=== PATIENT | male | born 1960 | race Caucasian/White ===

== ENCOUNTER 2021-09-09 10:43 | Inpatient (IN) | payer OTHER, SELFPAY ==
[2021-09-09] VITALS (26 sets, daily range): BP systolic 124–172; BP diastolic 52–100; PULSE 74–113; RESP 12–20; TEMP 36.4; O2SAT 90–99; BMI 36.3
--- NOTE | ~2021-09-09 | CT_ITS ---
EXAMINATION: CT HEAD WITHOUT CONTRAST (STROKE PROTOCOL) CLINICAL INFORMATION: Stroke protocol. Patient symptomatic again. COMPARISON: MRI brain and CTA head and neck from earlier the same day TECHNIQUE: Contiguous axial imaging was performed from the skull base to vertex without intravenous administration of contrast. This CT examination was performed using dose optimization techniques as appropriate, variously including the following: *Automated exposure control *Adjustment of mA and/or kV according to patient size (this includes techniques or standardized protocols for targeted exams where dose is matched to indication/reason for exam; i.e. extremities or head) *Use of iterative reconstruction technique DLP: 967 mGy-cm FINDINGS: Image quality is poor. The patient is not appropriately centered within the scanner. No intracranial hemorrhage. No extra-axial fluid collection. Major-white differentiation is maintained. Ventricular system is similar in appearance to the earlier studies. The previously seen small acute infarcts in the cerebellar hemispheres are not seen with most of the posterior fossa obscured by streak artifact. Globes and orbits are normal. No acute sinusitis. No skull fracture. Again seen is sclerosis of the left frontal skull unchanged from earlier. CT/CT head for stroke IMPRESSION: Suboptimal image quality. The patient is not appropriately centered within the scanner. No convincing change from CT angiogram of the head and neck performed earlier today. This critical result was discussed with Sheron Sharp PA-C by telephone at 09/09/2021 7:50 PM and it was ascertained that the content and urgency of the report was understood at the time of direct communication.
--- NOTE | ~2021-09-09 | CT_ITS ---
EXAMINATION: CT CHEST, ABDOMEN AND PELVIS WITHOUT CONTRAST. CLINICAL INFORMATION: Metastatic CA. COMPARISON: None. TECHNIQUE: 5 mm thin axial and reformatted 3 mm thin sagittal and coronal images of chest, abdomen and pelvis were obtained without contrast. FINDINGS: Chest: LUNGS: The lungs are well-expanded and clear of acute pneumonic process. There is bilateral lower lobe atelectasis and/or scarring. There are no pulmonary nodules, mass or groundglass density. Mediastinum: The thyroid lobes are symmetric and normal. The central trachea and the bronchi widely patent. The heart size and great vessels are normal caliber. There is no pericardial effusion. No abnormal size mediastinal lymph nodes seen. Pleura: There is mild posterior pleural thickening. Axilla: There are no abnormal axillary lymph nodes seen. The chest wall is unremarkable. Abdomen and pelvis: Liver, ducts and gallbladder: The liver is homogeneous in density normal size and contour. No focal lesion or intrahepatic ductal dilatation seen. There are no radiopaque gallstone stones or wall thickening. Spleen: Unremarkable. Pancreas: Unremarkable. Adrenal glands: Both adrenal glands are symmetrical and normal. Kidneys, ureter and bladder: The right kidney slightly lobulated mild thickening of upper pole renal cortex. The left kidney is normal cortical thickness in size. There is a midpole cyst and a nonobstructive 2 mm radiopaque calculi lower pole left kidney. There is no hydronephrosis on either side. The urinary bladder is distended without any wall thickening or radiopaque calculi. Lymphovascular structures: The abdominal aorta is of normal caliber there are small shotty retroperitoneal lymph nodes. Abdominal wall: There is a small umbilical hernia containing fat with minimal fat stranding. GI tract: There is scattered stool and gas seen throughout the colon without any significant distention. The small bowel loops and the appendix are normal caliber. Pelvis: No free air or free fluid seen. The prostate gland is normal size. No abnormal size mediastinal or hilar lymph nodes seen. Osseous structures: There is no lytic or sclerotic process seen. There is moderate ventral spondylosis mid and lower dorsal spine and throughout lumbar spine. No aggressive lytic or sclerotic process seen. CT/CT abdomen pelvis wo con IMPRESSION: No acute process seen in the chest. There is bilateral lower lobe atelectasis and/or scarring. No acute process seen in the abdomen and pelvis. Small size right kidney with thinning of the kidney cortex likely secondary to previous inflammatory process. There is no hydronephrosis. Nonobstructive radiopaque calculi lower pole and a small midpole cyst left kidney. No hydronephrosis. Small umbilical hernia containing fat with mild fat stranding.
--- NOTE | ~2021-09-09 | XR_ITS ---
EXAMINATION: XR CHEST CLINICAL INFORMATION: Dizziness and weakness. Rule out pneumonia. COMPARISON: None TECHNIQUE: Frontal view of the chest was obtained. FINDINGS: Cardiac silhouette is mildly enlarged. The lungs are adequately aerated. There is no lobar consolidation. No pleural effusion or pneumothorax. XR/XR chest 1V IMPRESSION: No acute pulmonary pathology.
--- NOTE | ~2021-09-09 | MR_ITS ---
MRI OF THE BRAIN WITHOUT IV CONTRAST INDICATION: Sudden onset vertigo. Blurry vision and slurred speech. COMPARISON: None available. TECHNIQUE: Multiplanar multisequence MR imaging of the brain was obtained without IV contrast. FINDINGS: Limited MRI of the brain. There are multiple small acute infarcts within the cerebellar hemispheres bilaterally. No mass effect and no hemorrhagic transformation. No additional acute infarcts. There is no hydrocephalus, extra-axial surface collection, or midline shift. No intracranial hemorrhage on the gradient series. Cerebellar tonsillar position is normal. The craniocervical junction is normal. No significant soft tissue findings. There is a 2.2 cm focus of bone marrow replacement within the left frontal calvarium on image 22 of series 5 that can be further assessed with a PET scan. MR/MR head/brain wo con IMPRESSION: - There are multiple small acute infarcts within the cerebellar hemispheres bilaterally. No mass effect and no hemorrhagic transformation. - There is a 2.2 cm focus of bone marrow replacement within the left frontal calvarium on image 22 of series 5 that can be further assessed with a PET scan.
--- NOTE | ~2021-09-09 | FL_ITS ---
EXAMINATION: FLUOROSCOPY-GUIDED LUMBAR PUNCTURE CLINICAL INFORMATION: HIV positive. Evaluate for central nervous system vasculitis. COMPARISON: None TECHNIQUE: Following explaining fluoroscopy-guided lumbar puncture procedure, benefits and risks, a written consent was obtained. Preliminary fluoroscopy was performed and a marker was placed on the skin for puncture site. Patient was placed prone on fluoroscopy table and low back area was cleaned and draped in usual sterile manner. 1% lidocaine was injected at the marked site. A 6 inch 20-gauge needle was then advanced from the skin intrathecally at the L4-L5 disc level. After observing CSF return, patient was quickly placed in left lateral decubitus view and opening CSF pressure was obtained. CSF fluid was then collected in 4 test tubes. Subsequently stylet was reintroduced and needle withdrawn. Complete hemostasis achieved at the puncture site. Sterile Band-Aid applied postprocedure. Patient tolerated procedure extremely well. FINDINGS: Preliminary images obtained of lumbar spine show the vertebral heights, alignment and disc heights are normal in the lumbar spine. The opening CSF pressure was 22 cm of water. Approximately 12.9 mL of clear CSF collected in 4 test tubes. The fluid collected was sent to lab as per referring physician's orders. FLUOROSCOPY TIME: 0.9 minutes. DOSE AREA PRODUCT: 11.007 uGy-m2 (microgray-meter squared) FL/FL guided lumbar puncture LP IMPRESSION: Successful fluoroscopy-guided lumbar puncture performed at the L4-L5 disc level. The CSF pressure is elevated measuring 22 cm of water. CSF is clear.
--- NOTE | ~2021-09-09 | CT_ITS ---
EXAMINATION: CT ANGIOGRAM NECK WITH CONTRAST CT ANGIOGRAM BRAIN WITH CONTRAST CLINICAL INFORMATION: Sudden onset dizziness. Cerebellar stroke on MRI. COMPARISON: Brain MRI performed earlier the same day. TECHNIQUE: Test bolus sequences followed by intravenous administration 70 mL of Omnipaque 350. Helical imaging was performed in the axial plane from the thoracic inlet to the skull vertex. Delayed postcontrast imaging of the head was also performed. The data was processed at the distribution engineering technologist workstation for generation of MIP sequences. Angled MIPs and volume rendered reformatted images were also generated at an offline 3D workstation under concurrent supervision. Stenoses are assessed in accordance with NASCET criteria unless otherwise indicated. This CT examination was performed using dose optimization techniques as appropriate, variously including the following: *Automated exposure control *Adjustment of mA and/or kV according to patient size (this includes techniques or standardized protocols for targeted exams where dose is matched to indication/reason for exam; i.e. extremities or head) *Use of iterative reconstruction technique FINDINGS: BRAIN: Small infarcts within the cerebellar hemispheres bilaterally are better demonstrated on the previous MRI of the brain. No mass effect. [There is no intracranial hemorrhage, hydrocephalus, extra-axial surface collection, midline shift, or other herniation pattern. Major to white matter differentiation is diffusely maintained without evidence of an evolved acute territorial infarct. The basilar cisterns are preserved. No significant soft tissue abnormality. No acute osseous abnormality. The paranasal sinuses and the mastoid air cells are well aerated.] There is a 2.2 cm sclerotic lesion within the anterior left frontal calvarium that can again be further assessed with PET. CERVICAL SOFT TISSUES AND LUNG APICES: No significant soft tissue findings within the neck. Imaged lungs are clear. Multilevel cervical spondylosis. NECK CTA: [There is a classic 3 vessel configuration of the aortic arch. Proximal arch vessels are non-stenotic. Occlusion of the left vertebral artery at its origin. The left vertebral artery remains occluded to the level of the left V1/V2 segment junction with reconstitution of the remaining left vertebral artery by paraspinal muscular branches. Both common carotid arteries are normal in course and caliber.] Retropharyngeal course of the left cervical ICA. BRAIN CTA: [There is normal opacification of major intracranial arteries. No focal flow-limiting stenosis nor discrete proximal large artery occlusion. No aneurysm. Timing of the contrast bolus allows assessment of the major dural venous sinuses, which all opacify normally] CT/CT angio head neck stroke IMPRESSION: - Small infarcts within the cerebellar hemispheres bilaterally are better demonstrated on the previous MRI of the brain. No mass effect. - Occlusion of the left vertebral artery at its origin. The left vertebral artery remains occluded to the level of the left V1/V2 segment junction with reconstitution of the remaining left vertebral artery by paraspinal muscular branches. - No acute arterial occlusions intracranially. - There is a 2.2 cm sclerotic lesion within the anterior left frontal calvarium that can again be further assessed with PET. Covering provider paged with these findings at 2:21 PM on 09/09/2021.
--- NOTE | ~2021-09-09 | CT_ITS ---
EXAMINATION: CT HEAD WITHOUT CONTRAST CLINICAL INFORMATION: Follow-up status post TPA COMPARISON: Head CT 09/09/2021, brain MRI 09/09/2021 TECHNIQUE: Imaging was performed from the skull base to vertex without intravenous administration of contrast. This CT examination was performed using dose optimization techniques as appropriate, variously including the following: *Automated exposure control *Adjustment of mA and/or kV according to patient size (this includes techniques or standardized protocols for targeted exams where dose is matched to indication/reason for exam; i.e. extremities or head) *Use of iterative reconstruction technique Total exam dose length product: 790 mGy-cm FINDINGS: No intra or extra-axial fluid collection, hemorrhage, or mass. No ventriculomegaly. No midline shift or herniation. Basal cisterns are patent. Foci of hypoattenuation in the right and left cerebellar hemisphere compatible with evolving no infarcts. Major-white matter differentiation is otherwise maintained. No significant volume loss. No calvarial fracture or soft tissue abnormality. The mastoid air cells and visualized portions of the paranasal sinuses are well aerated. 2.1 cm sclerotic lesion in the anterior left frontal calvarium is unchanged. CT/CT head/brain wo con IMPRESSION: 1. No intracranial hemorrhage. 2. Hypoattenuation in the right and left cerebellar hemispheres compatible with known evolving cerebellar infarcts.
--- NOTE | 2021-09-09 10:46 | ECG_ITS ---
Test Reason : cp Blood Pressure : / mmHG Vent. Rate : 085 BPM Atrial Rate : 085 BPM P-R Int : 152 ms QRS Dur : 100 ms QT Int : 366 ms P-R-T Axes : 019 -36 029 degrees QTc Int : 435 ms Artifact in tracing Normal sinus rhythm Left axis deviation Borderline ECG No previous ECGs available Referred By: Generic ED Physician Electronically Signed By:BRITNEY MIJARES
[2021-09-09 11:03] LABS: Glucose, Whole Blood 188 mg/dL (60-115)
--- NOTE | 2021-09-09 11:10 | PC.NURSE ---
DR SEGURA CONSULTING WITH DR DAVID AT THIS TIME. STROKE RN NOTIFIED VIA [employer] WELL.
[2021-09-09] MEDS: LORazepam 2 MG/ML VIAL 1 MG IVPUSH (11:15)
[2021-09-09] MEDS: Meclizine HCl 25 MG TABLET PO ×2 (11:16→20:22)
[2021-09-09] MEDS: ondansetron HCL 4 MG/2 ML VIAL IVPUSH ×2 (11:18→20:45)
[2021-09-09] MEDS: 0.9 % Sodium Chloride 1,000 ML 999 ML IV (11:19)
[2021-09-09 11:22] LABS: Basophils Absolute Auto 0.1 X10*3/uL (0.0-0.2); Basophils Percent Auto 0.6 % (0-2); Eosinophils Absolute Auto 0.6 X10*3/uL (0.0-0.4); Hematocrit 39.7 % (42.0-52.0); Hemoglobin 13.7 g/dl (14.0-18.0); Imm Gran Abs Auto 0.04 X10*3/uL (0.00-0.03); Imm Gran Pct Auto 0.3 % (0.0-0.4); Lymphocytes Absolute Auto 5.5 X10*3/uL (1.2-4.9); Lymphocytes Percent Auto 46.7 % (20-40); MANUAL DIFF FLAG SCAN; Mean Corpuscular HGB Conc 34.5 g/dl (31.0-36.0); Mean Corpuscular Hemoglobin 31.6 pg (27.0-33.0); Mean Corpuscular Volume 91.5 fL (80.0-98.0); Mean Platelet Volume 9.8 fL (9.4-12.4); Monocytes Absolute Auto 0.7 X10*3/uL (0.1-1.2); Monocytes Percent Auto 5.7 % (2-11); Neutrophils Absolute Auto 4.9 x10*3/uL (2.0-8.3); Neutrophils Percent Auto 41.7 % (45-73); Platelet Count 243 X10*3/uL (160-400); Red Blood Count 4.34 X10*6/uL (4.60-5.80); Red Cell Distribution Width 13.4 % (11.0-16.0); SCAN SMEAR FLAG 1; White Blood Count 11.8 X10*3/uL (4.8-10.8)
[2021-09-09 11:43] LABS: SLIDE REVIEW VERIFIED
[2021-09-09 11:44] LABS: Prothrombin Time 10.8 SEC (9.9-13.0)
[2021-09-09 11:49] LABS: Troponin-I High Sensitivity < 3.5 ng/L (<3.5-35.0)
[2021-09-09 12:14] LABS: Stroke Lab Use COMPLETE
--- NOTE | 2021-09-09 12:26 | ED.DIZZY ---
HPI - Dizziness General Chief Complaint: Dizziness Stated Complaint: SUDDEN ONSET OF DIZZY,NAUSEA,VOMITING Time Seen by Provider: 09/09/21 11:00 Source: patient Mode of arrival: EMS Limitations: no limitations History of Present Illness HPI Narrative: 60-year-old male who presents emergency department for evaluation sudden onset of dizziness, nausea, vomiting blurred vision. The patient states he is sitting from his computer doing work when he had a sudden onset of his symptoms. He states that he felt like the room was spinning. He had nausea and vomited several times. He also states his vision was blurred. The onset of his symptoms were at 10:15 a.m. the patient called 911 and was brought to the emergency department. At the time my evaluation the patient was diaphoretic, his speech was dysarthric but comprehensible, he answers all questions appropriately, his neurologic exam was nonfocal including fever nose to finger, rapid finger movement and cjcs-gr-ywdq movement. Gait was not tested. Patient states that he was in his usual state of health until the above symptoms started. He denied fever, chills, rhinorrhea, sore throat, cough, chest pain, shortness of breath, dyspnea on exertion, abdominal pain, changes bowel movements. MD elicited complaint: dizziness, vertigo and disequilibrium Onset (ago): minute(s) (Just prior to coming to the emergency department) Timing: sudden onset Severity: severe Description: room spinning History of similar symptoms: No Exacerbating factors: change in body position Relieving factors: nothing Associated symptoms: nausea, vomiting and diaphoresis Associated neuro symptoms: vision changes (Blurred vision) and difficulty speaking (Dysarthric) Stroke scale total: 1 Related Data Allergies Allergy/AdvReac Type Severity Reaction Status Date / Time No Known Allergies Allergy Verified 09/09/21 10:46 Review of Systems Review of Systems: Yes all other systems are reviewed and are negative [facility] Past Medical History [facility] Narrative: Past medical history: Diabetes mellitus, hyperlipidemia. Past surgical history: None. Social history: He denies tobacco, alcohol and drug use. Social History Social History Advance Directives: No Advance Directives Information Provided: Yes Physical Exam Vital Signs: Vital Signs: Last Vital Signs Temp 97.5 F 09/09/21 10:50 Pulse 83 09/09/21 15:17 Resp 19 09/09/21 15:17 BP 145/98 H 09/09/21 15:17 Pulse Ox 98 09/09/21 15:17 O2 Del Method 09/09/21 14:45 BMI result Body Mass Index 36.3 Const: General: cooperative and no acute distress Orientation/consciousness: oriented to person and oriented to place Limitations: no limitations HEENT: Head: Yes normal to inspection, Yes normocephalic and Yes atraumatic Ears: external ears normal General nose exam: Normal external nose present Face and sinus: Yes normal facial exam Mouth: Normal oral and palatal mucosa present Throat: Yes posterior oropharynx normal Eyes: General: appearance normal, both eyes and all related structures Pupils: Equal, round and reactive pupils present Neck: Neck: Yes normal visual inspection, Yes no lymphadenopathy, Yes trachea midline and Yes supple Chest: Chest palpation & inspection: normal inspection of the chest and normal palpation of entire chest wall Resp: Effort & Inspection: normal respiratory effort and able to speak in complete sentences Auscultation: clear to auscultation bilaterally Cardio: Rate: regular rate Rhythm: regular rhythm Heart sounds: S1 normal heart sound present, S2 normal heart sound present and no murmurs GI: Inspection: Yes normal to inspection Palpation (GI): Soft to palpation, nontender and no guarding Auscultation: normal bowel sounds : General: Yes no CVA tenderness Back/Spine/Pelvis: Back: no CVA tenderness Skin: General skin exam: no rashes or lesions noted Neuro: General: oriented to person and oriented to place Cranial nerves: Yes CN's II-XII intact bilaterally and Yes Equal, round and reactive pupils present Cognition (Neuro): normal cognition Motor exam (neuro): 5/5 motor strength present throughout Coordination: forlyz-er-lush test normal, qdwm-ez-gvtw test normal and Normal rapid alternating movements of the distal upper extremity present (Neuro) Extrem: General: Yes normal to inspection Psych: Appearance: grossly normal Speech and movement: Normal speech and movement present Affect: normal affect Attitude: cooperative Thought process: Normal thought process present Thought content: Normal thought content present Course Course Course Narrative: 60-year-old male who presents emergency department for evaluation of sudden onset of vertigo like symptoms associated with nausea, vomiting and blurred vision. On presentation the patient was very diaphoretic, his speech was slow and slightly dysarthric but comprehensible. Patient did not have any nystagmus. His neurologic exam was unremarkable with normal jltzwt-zy-eoif-to-finger, xpxh-mb-sxug and rapid finger movement. Patient's NIH stroke scale was 1 secondary to his dysarthric speech. Given his symptoms especially his blurred vision , lack of nystagmus and slightly dysarthric speech was concerned that he may be having cerebellar stroke. I did discuss the patient with our stroke neurologist, Dr. Florez who recommended a stat MRI. The radiologist interpreted the MRI has revealing multiple small infarcts within the cerebellar hemisphere bilaterally. No mass effect no hemorrhagic transformation. There was an incidental 2.2 cm focus of bone marrow replacement within the left frontal calvarium on image 22 series 5 that can be further assessed with a PET scan Given the patient's presentation MRI findings, Dr. Florez recommended giving tPA. The patient had no contraindications. I did discuss the risk and the benefit of receiving tPA with the patient and the patient's family. The patient did consent and he was given his tPA bolus and started on tPA drip. Dr. Florez recommended getting a CT angiogram head and neck after the tPA infusion is completed. I did discuss the patient's presentation with our covering exhaust emissions automotive technician,Dr. George and the patient will be admitted to the ICU. 15 20: CT angiogram head and neck radiology interpretation as follows:- Occlusion of the left vertebral artery at its origin. The left vertebral artery remains occluded to the level of the left V1/V2 segment junction with reconstitution of the remaining left vertebral artery by paraspinal muscular branches. I did discuss this finding with Dr. Florez. This is not a clot that can be retrieved and is managed with blood thinners therefore the patient can be kept at this facility. I did discuss the patient's presentation and findings with the exhaust emissions automotive technician, Dr. George and thepatient will be admitted to the ICU. MDM - Dizziness Lab Data Result diagrams: 09/09/21 11:10 09/09/21 13:26 Labs: Lab Results 09/09/21 09/09/21 09/09/21 Range/Units 11:00 11:10 11:10 WBC 11.8 H (4.8-10.8) X10*3/uL RBC 4.34 L (4.60-5.80) X10*6/uL Hgb 13.7 L (14.0-18.0) g/dl Hct 39.7 L (42.0-52.0) % MCV 91.5 (80.0-98.0) fL MCH 31.6 (27.0-33.0) pg MCHC 34.5 (31.0-36.0) g/dl RDW 13.4 (11.0-16.0) % Plt Count 243 (160-400) X10*3/uL MPV 9.8 (9.4-12.4) fL Immature Gran % (Auto) 0.3 (0.0-0.4) % Neut % (Auto) 41.7 L (45-73) % Lymph % (Auto) 46.7 H (20-40) % [place] % (Auto) 5.7 (2-11) % Eos % (Auto) 5.0 H (0-4) % Baso % (Auto) 0.6 (0-2) % Lymph # (Auto) 5.5 H (1.2-4.9) X10*3/uL [place] # (Auto) 0.7 (0.1-1.2) X10*3/uL Eos # (Auto) 0.6 H (0.0-0.4) X10*3/uL Baso # (Auto) 0.1 (0.0-0.2) X10*3/uL Abs Immat Gran (auto) 0.04 H (0.00-0.03) X10*3/uL Absolute Neuts (auto) 4.9 (2.0-8.3) x10*3/uL Absolute Nucleated RBC 0.000 (0.0-0.012) X10*3/uL Nucleated RBC % (auto) 0.0 (0.0-0.2) /100WBC Smear Tech's Comments VERIFIED PT 10.8 (9.9-13.0) SEC INR 1.0 (0.9-1.1) Sodium (135-145) mmol/L Potassium (3.3-5.1) mmol/L Chloride (96-108) mmol/L Carbon Dioxide (22-29) mmol/L Anion Gap (12-20) BUN (9-16) mg/dL Creatinine (0.5-1.4) mg/dL Estim Creat Clear Calc Estimated GFR POC Glucose 188 H (60-115) mg/dL Random Glucose (60-115) mg/dL Calcium (8.4-10.2) mg/dL Total Bilirubin (0.0-1.0) mg/dL AST (5-37) U/L ALT (0-40) U/L Alkaline Phosphatase (39-117) U/L Troponin I High Sens (<3.5-35.0) ng/L Total Protein (6.5-8.0) g/dL Albumin (3.5-5.0) g/dL 09/09/21 09/09/21 Range/Units 11:10 13:26 WBC (4.8-10.8) X10*3/uL RBC (4.60-5.80) X10*6/uL Hgb (14.0-18.0) g/dl Hct (42.0-52.0) % MCV (80.0-98.0) fL MCH (27.0-33.0) pg MCHC (31.0-36.0) g/dl RDW (11.0-16.0) % Plt Count (160-400) X10*3/uL MPV (9.4-12.4) fL Immature Gran % (Auto) (0.0-0.4) % Neut % (Auto) (45-73) % Lymph % (Auto) (20-40) % [place] % (Auto) (2-11) % Eos % (Auto) (0-4) % Baso % (Auto) (0-2) % Lymph # (Auto) (1.2-4.9) X10*3/uL [place] # (Auto) (0.1-1.2) X10*3/uL Eos # (Auto) (0.0-0.4) X10*3/uL Baso # (Auto) (0.0-0.2) X10*3/uL Abs Immat Gran (auto) (0.00-0.03) X10*3/uL Absolute Neuts (auto) (2.0-8.3) x10*3/uL Absolute Nucleated RBC (0.0-0.012) X10*3/uL Nucleated RBC % (auto) (0.0-0.2) /100WBC Smear Tech's Comments PT (9.9-13.0) SEC INR (0.9-1.1) Sodium 139 (135-145) mmol/L Potassium 5.1 (3.3-5.1) mmol/L Chloride 110 H (96-108) mmol/L Carbon Dioxide 21 L (22-29) mmol/L Anion Gap 13 (12-20) BUN 23 H (9-16) mg/dL Creatinine 1.71 H (0.5-1.4) mg/dL Estim Creat Clear Calc 59.8 Estimated GFR 41 POC Glucose (60-115) mg/dL Random Glucose 166 H (60-115) mg/dL Calcium 8.8 (8.4-10.2) mg/dL Total Bilirubin 0.5 (0.0-1.0) mg/dL AST 17 (5-37) U/L ALT 21 (0-40) U/L Alkaline Phosphatase 103 (39-117) U/L Troponin I High Sens < 3.5 (<3.5-35.0) ng/L Total Protein 7.2 (6.5-8.0) g/dL Albumin 4.3 (3.5-5.0) g/dL Critical Care Time Critical Care Time Critical Care Time: Yes Total Critical Care Time: 45 Attestation: Critical Care: The patient was critically ill with a high probability of imminent or life threatening deterioration. I spent greater than 30 minutes of discontinuous time evaluating the patient,delivering critical care at the bedside, discussing and evaluating pertinent data with consultants. Critical care time does not include time spent performing separately billable procedures or teaching. Total time spent performing critical care was 45 minutes. 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
--- NOTE | 2021-09-09 13:36 | MHC.STROKE ---
Addendum entered by Stefany Sesay RN 09/10/21 14:54: I MET WITH THE PATIENT AND HIS SON, EARLIER I MET WITH THE PATIENT AND DAUGHTER WELL. I REINFORCED THE STROKE EDUCATION AND PLAN OF CARE TO ALL OF THEM. THE PATIENT WILL BE TRANSFERRED TO [facility] TODAY, THE TECH AND MYSELF AMBULATED IN THE ICU HALLWAY, HE DID WELL BUT HE DOES STILL REQUIRE SUPERVISION WHILE AMBULATING. I WILL SEE WHAT PT AND OT SAYS TOMORROW. Addendum entered by Stefany Sesay RN 09/09/21 20:02: [address] CT HEAD REPORT BY DR. WARE IN THE SYSTEM, NO BLEED POST-TPA -ALTEPLASE. BP 150/80 HR 78. Addendum entered by Stefany Sesay RN 09/09/21 19:44: 1849 NOTIFIED BY ICU NURSE JEFFERY THAT THE PATIENT HAD RECURRING SYMPTOMS OF VERTIGO NAUSEA/VOMITING. I IMMEDIATELY CONTACTED DR DAVID, BP 124/52, HR 113 REPORTED TO NEUROLOGIST, A CT HEAD WAS ORDERED STAT, KEVIN ALEXANDER CONTACTED ME AND THE ORDER WAS AMENDED TO CT HEAD FOR STROKE. THE PATIENT WAS TAKEN TO CT, DR DAVID WILL ALSO LOOK AT THE SCAN, THEN HE WILL CALL ICU TO SPEAK WITH THE PA. Addendum entered by Stefany Sesay RN 09/09/21 17:30: REPORT GIVEN TO ICU NURSE ALICIA. REVIEWED TPA GIVEN TIME AT 1218. FREQUENT [id number] VITALS/NEURO'S DONE, [id number] UNTIL 2030 THEN Q1HR, REVIEWED THIS WITH STAFF. I ALSO FOLLOW-UP WITH THE PATIENT AND HIS SON. THE PATIENT WAS ABLE TO GET OFF THE STRETCHER AND TRANSFER TO THE BED WITHOUT DIFFICULTY, HE WILL BE CHECKED BY PT AND OT IN THE AM. 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 ARRIVED AT 1043. EXAMINED BY DR. SEGURA AND STROKE PROTOCOL ACTIVATED, DISCUSSED WITH DR. DAVID AND MRI WAS RECOMMENDED. PATIENT WAS VERY DIZZY, DIAPHORETIC, DYSARTHRIC AND NAUSEOUS. HE NEEDED TO BE PRE-MEDICATED. HE PASSED SWALLOW SCREEN AT 1115. BROUGHT DOWN TO MRI, VOMITED IN ROUTE, MRI DONE AND IN DWI ACUTE CEREBELLAR STROKES IDENTIFIED, DR. DAVID REVIEWED THE SCAN, HE WANTED THE PATIENT TAKEN OUT OF THE SCANNER AND BROUGHT BACK TO THE ED FOR TPA-ALTEPLASE. EDUCATION PROVIDED TO THE PATIENT AND FAMILY, HE DID SAY A FEW TIMES I HAD A STROKE? VITALS WITHIN RANGE FOR TPA IV BOLUS GIVEN AT 1218 FOLLOW BY 1HR INFUSION. CTA H/N RECOMMENDED AFTER THE TPA HAS INFUSED. DOOR-TO-TPA = 95 MINUTES. DELAY GREATER THAN 60 MINUTES DUE TO ADDITIONAL IMAGING NEEDED TO CONFIRM THE DIAGNOSIS, NIHSS=1, AND NAUSEAU/VOMITING. HE WILL BE ADMITTED TO ICU FOR UP TO 24 HOURS, FREQUENT VITALS AND NEURO'S PER PROTOCOL, ECHO, CTA H/N, PNEUMATIC COMPRESSION BOOTS FOR VTE, NO ASPIRIN OR BLOOD THINNERS FOR 24HOURS POST-TPA THEN ANTIPLATELET THERAPY, STATIN IF LDL > 70 AND PATIENT DOES NOT HAVE ANY CONTRAINDICATION. BP CONTROL, BS CONTROL. AND MONITOR FOR ANY WORSENING OF SYMPTOMS. STROKE EDUCATION PROVIDED TO PATIENT AND FAMILY. I WILL CONTINUE TO FOLLOW.
--- NOTE | 2021-09-09 13:53 | PM.NEUROCN ---
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 Associated with that his vision got blurred and double any started sweating and not feeling well. He was brought to emergency room where he was evaluated for acute stroke. Because of concern about posterior circulation and relatively nonfocal examination, other than significant complain of dizziness and inability to walk, an MRI of brain was performed. MRI of brain revealed acute bilateral cerebellar ischemic infarction type of lesions and he was treated with intravenous tPA. I saw him after tPA administration and he was feeling much better with resolution of symptoms. he denied any drug of abuse, excessive alcohol use or any unusual physical activity. Review of Systems Review of Systems: No recent cold or flu-like illness PMFSH Social History Social History Advance Directives: No Advance Directives Information Provided: Yes Meds Allergies Allergy/AdvReac Type Severity Reaction Status Date / Time No Known Allergies Allergy Verified 09/09/21 10:46 Physical Exam Vital Signs: Vital Signs: Last Vital Signs Temp 97.5 F 09/09/21 10:50 Pulse 79 09/09/21 13:30 Resp 16 09/09/21 13:30 BP 153/96 H 09/09/21 13:30 Pulse Ox 97 09/09/21 13:30 O2 Del Method 09/09/21 13:30 BMI result Body Mass Index 36.3 Neuro: Other: he is alert and awake with normal spontaneity of speech fluency comprehension and affect. Pupils are equal round reactive to light. Extraocular muscles are intact. Visual renee are full to threat. Face is symmetrical. Tongue is midline. There is no pronator drift. Sqawsj-aq-pbiv testing is normal. Deep tendon reflexes are trace to 1+ with flexor plantars. He is able to get up and stand up without difficulty. Speech is normal. Affect is normal. Results Labs CBC & Chem 7: 09/09/21 11:10 09/09/21 11:10 Labs: Short CBC 09/09/21 Range/Units 11:10 WBC 11.8 H (4.8-10.8) X10*3/uL Hgb 13.7 L (14.0-18.0) g/dl Hct 39.7 L (42.0-52.0) % Plt Count 243 (160-400) X10*3/uL MRI of brain revealed small bilateral cerebellar areas of restricted diffusion. Some of that was visible on FLAIR sequence but not all. Otherwise no significant brain pathology was noted. Radiologist also reported a lesion in bone marrow of calvarium. Assessment and Plan (1) Cerebral infarction: Status: Acute 60 years old man with underlying history of obesity and hypertension presented with severe dizziness and unsteadiness of gait with blurred vision. Stat MRI of brain revealed bilateral cerebellar ischemic infarction type of lesions. With this finding and presentation, he was treated with intravenous tPA and has done well. At this time my recommendation is to obtain CTA of brain and neck to rule out vertebral basilar or particularly basilar artery disease. If no such vascular lesion is noted, I would pay attention to possibility of hyperviscosity type of syndrome and then the lesion noted on calvarium might become more important. For now avoid blood thinners and admit him to ICU for post tPA blood pressure management Procedures Date of Service Date of Service: 09/09/21
[2021-09-09] MEDS: iohexoL 350 MG/ML 100 ML INFUS..BTL 70 ML IV (14:01)
[2021-09-09 14:32] LABS: Alanine Aminotransferase 21 U/L (0-40); Albumin Level 4.3 g/dL (3.5-5.0); Alkaline Phosphatase 103 U/L (39-117); Anion Gap 13 (12-20); Aspartate Amino Transferase 17 U/L (5-37); Bilirubin Total 0.5 mg/dL (0.0-1.0); Blood Urea Nitrogen 23 mg/dL (9-16); Calcium 8.8 mg/dL (8.4-10.2); Carbon Dioxide 21 mmol/L (22-29); Chloride 110 mmol/L (96-108); Creatinine Clr Calc Pharmacy 59.8; Estimated Glomerular Filt Rate 41; Glucose Random 166 mg/dL (60-115); Potassium 5.1 mmol/L (3.3-5.1); Sodium 139 mmol/L (135-145); Total Protein 7.2 g/dL (6.5-8.0)
[2021-09-09] MEDS: Acetaminophen 325 MG TABLET 975 MG PO (14:48)
[2021-09-09] MEDS: 0.9 % Sodium Chloride 1,000 ML 100 ML IVCONT ×2 (15:57→23:27)
--- NOTE | 2021-09-09 16:04 | PM.CCHP ---
History of Present Illness Date of Service: 09/09/21 Attending physician on admission: Barbi George Chief Complaint: Acute onset of nausea vomiting diet diaphoresis and dizziness A 60-year-old male on anti retroviral and perfectly stable with a background HIV also a type 2 diabetic on metformin it 2 g otherwise p.r.n. albuterol inhaler and indomethacin p.r.n. for gouty pain admitted with an acute onset of nausea vomiting and diaphoresis and dizziness which seems to than significantly improved since we found that he had the multiple bilateral cerebellar infarcts on a on MRI treated with tPA Review of Systems Review of Systems: Yes all other systems are reviewed and are negative [facility] Past Medical History Medical History Diabetes mellitus, type 2 Gout HIV (human immunodeficiency virus infection) Hypertension Kidney stones Social History Social History Household Members: None Housing: House Do you presently have visiting nurse or other home services: No Patient Tobacco Use Status: Never used Tobacco Use of substances other than those prescribed or required for medical reasons: No Have you been hit, kicked, punched, or otherwise hurt by someone within the past year? If so, by whom?: No Do you feel safe in your current relationship?: No [employer] Healthcare Practices: mandaen Advance Directives: No Advance Directives Information Provided: Yes Do you have thoughts of harming others: None Do you have a plan to hurt others: No Plan Recently lost weight without trying: No Eating poorly because of decreased appetite: No Nutrition Risks: No Nutritional Risk Poor oral hygiene: No Meds Allergies Allergy/AdvReac Type Severity Reaction Status Date / Time No Known Allergies Allergy Verified 09/09/21 10:46 Active Medications: Current Medications Sodium Chloride (Ns) 1,000 mls @ 100 mls/hr IVCONT .Q10H [facility] Last Admin: 09/09/21 15:57 Dose: 100 mls/hr Sodium Chloride (0.9 % Sodium Chloride Flush 3 Ml Syringe) 3 ml IVFLUSH QSHIFT [facility] Home Medications Medication Instructions Recorded Confirmed Last Taken Type albuterol sulfate 90 mcg/actuation 2 inh inhalation Q4H PRN Wheezing 09/09/21 09/09/21 Unknown History aerosol inhaler allopurinol 300 mg tablet 2 tab PO BEDTIME 09/09/21 09/09/21 09/08/21 History atorvastatin 40 mg tablet 1 tab PO BEDTIME 09/09/21 09/09/21 09/08/21 History bictegravir 50 mg-emtricitabine 1 tab PO BEDTIME 09/09/21 09/09/21 09/08/21 History 200 mg-tenofovir alafenam 25 mg tablet (Biktarvy) indomethacin 50 mg capsule 3 - 4 cap PO DAILY PRN GOUT ATTACK 09/09/21 09/09/21 Unknown History metformin 1,000 mg tablet 2,000 mg PO BEDTIME 09/09/21 09/09/21 09/08/21 History sildenafil 50 mg tablet 1 tab PO DAILY PRN SEXUAL 09/09/21 09/09/21 Unknown History INTERCOURSE Physical Exam Vital Signs: Vital Signs: Last Vital Signs Temp 97.5 F 09/09/21 10:50 Pulse 84 09/09/21 15:53 Resp 19 09/09/21 15:53 BP 151/99 H 09/09/21 15:53 Pulse Ox 99 09/09/21 15:53 O2 Del Method 09/09/21 14:45 BMI result Body Mass Index 36.3 Vital signs stable and stable sinus rhythm and bedside echo showing globally normal systolic wall motion of the left ventricle all chamber sizes normal and no primary valve or pericardial disease Bedside tests for cerebellar function intact bilaterally Abdomen soft no organomegaly Chest and chest x-ray both clear no adventitious sounds Results Labs CBC and Chem 7: 09/10/21 05:07 09/10/21 05:07 Labs: Laboratory Results - last 24 hr 09/09/21 09/09/21 09/09/21 11:00 11:10 11:10 MCV 91.5 MCH 31.6 MCHC 34.5 RDW 13.4 Plt Count 243 MPV 9.8 Immature Gran % (Auto) 0.3 Neut % (Auto) 41.7 L Lymph % (Auto) 46.7 H [place] % (Auto) 5.7 Eos % (Auto) 5.0 H Baso % (Auto) 0.6 Lymph # (Auto) 5.5 H [place] # (Auto) 0.7 Eos # (Auto) 0.6 H Baso # (Auto) 0.1 Abs Immat Gran (auto) 0.04 H Absolute Neuts (auto) 4.9 Absolute Nucleated RBC 0.000 Nucleated RBC % (auto) 0.0 Smear Tech's Comments VERIFIED PT 10.8 INR 1.0 Anion Gap Estim Creat Clear Calc Estimated GFR POC Glucose 188 H Random Glucose Calcium Total Bilirubin AST ALT Alkaline Phosphatase Troponin I High Sens Total Protein Albumin 09/09/21 09/09/21 11:10 13:26 MCV MCH MCHC RDW Plt Count MPV Immature Gran % (Auto) Neut % (Auto) Lymph % (Auto) [place] % (Auto) Eos % (Auto) Baso % (Auto) Lymph # (Auto) [place] # (Auto) Eos # (Auto) Baso # (Auto) Abs Immat Gran (auto) Absolute Neuts (auto) Absolute Nucleated RBC Nucleated RBC % (auto) Smear Tech's Comments PT INR Anion Gap 13 Estim Creat Clear Calc 59.8 Estimated GFR 41 POC Glucose Random Glucose 166 H Calcium 8.8 Total Bilirubin 0.5 AST 17 ALT 21 Alkaline Phosphatase 103 Troponin I High Sens < 3.5 Total Protein 7.2 Albumin 4.3 Imaging Radiologist's Impressions: Impressions Brain MRI 09/09/21 12:00 IMPRESSION: - There are multiple small acute infarcts within the cerebellar hemispheres bilaterally. No mass effect and no hemorrhagic transformation. - There is a 2.2 cm focus of bone marrow replacement within the left frontal calvarium on image 22 of series 5 that can be further assessed with a PET scan. Chest X-Ray 09/09/21 13:24 IMPRESSION: No acute pulmonary pathology. Head/Neck CTA 09/09/21 14:02 IMPRESSION: - Small infarcts within the cerebellar hemispheres bilaterally are better demonstrated on the previous MRI of the brain. No mass effect. - Occlusion of the left vertebral artery at its origin. The left vertebral artery remains occluded to the level of the left V1/V2 segment junction with reconstitution of the remaining left vertebral artery by paraspinal muscular branches. - No acute arterial occlusions intracranially. - There is a 2.2 cm sclerotic lesion within the anterior left frontal calvarium that can again be further assessed with PET. Covering provider paged with these findings at 2:21 PM on 09/09/2021. 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
[2021-09-09 17:00] LABS: Glucose, Whole Blood 109 mg/dL (60-115)
[2021-09-09 17:05] LABS: COVID-19 Test Negative (Negative)
--- NOTE | 2021-09-09 18:28 | PHA.MEDREC ---
Pharmacy Consult ? Medication Reconciliation Pharmacy has completed the medication reconciliation.
--- NOTE | 2021-09-09 19:29 | PC.NURSE ---
1849-pt's son came out to say pt was feeling dizziness and nauseated. Went to assess pt. Pt had small amount of emesis. [place] text sent to Stefany, stroke educator and Dr. George. Stefany was notifiying neuro . No other neuro issues noted during assessment. 1854-pt states, dizziness is there regardless of eyes open or closed, and headache which is rating at 2-3. Nausea subsided. Neuro called and was updated. stat head CT w/o contrast. 1899-report given to night RN and updated PA. 1909-pts son came out again and stated, pt had twitching in left hand and foot. Upon assessment, no twitching noted. Pt states, headache is now a 4-5, could not describe anymore. No neuro changes noted. 1914-pt to CT with RN and PA.
[2021-09-09 20:13] LABS: Glucose, Whole Blood 116 mg/dL (60-115)
--- NOTE | 2021-09-09 20:19 | P.PNCC_ITS ---
Critical Care Event Note Summary Date of Service: 09/09/21 Code activated: No Narrative: This case had a high probability of a clinically significant, sudden, or life threatening deterioration of this patient's condition which required my full and direct attention, intervention and personal management. Critical Care Time (minutes): 30 Comment: Prior to my arrival this evening, the patient reported to his nurse that he was feeling dizzy and nauseous again, similar to how he felt when he called 911. The RN texted the neurologist, Dr. Florez and Stefany Sesay, [place], they recommended repeat head CT to verify no hemorrhage. When I came in at 7pm, the patient stated again that he we still felt dizzy and nauseous, we immediately brought him down for a repeat head CT. [facility] called to report no change and no hemorrhage. I asked Dr. Florez if we should repeat the MRI (per the families repeated requests) but he said no because we have no treatment offer (pt has already rec'd tPA) and that the patient will likely remain dizzy for a while due to the damage done in the posterior circulation stroke earlier today. I sat with the patients 2 sons and discusses the situation and how a repeat MRI is not needed. Dr. Florez recommended treating the dizziness with meclizine, we gave the patient 25 mg meclizine at 20:30 which he immediately vomited up. Gave IV Zofran and Benadryl. Pt slept soundly for a few hours and reports feeling better upon waking. Critical Care Time Critical Care Time (minutes): 60
[2021-09-09] MEDS: diphenhydrAMINE HCL 50 MG/ML VIAL 25 MG IVPUSH (20:45)
[2021-09-09 22:50] LABS: Troponin-I High Sensitivity 4.9 ng/L (<3.5-35.0)
[2021-09-09] MEDS: 0.9 % Sodium Chloride Flush 3 ML SYRINGE IVFLUSH (23:23)
[2021-09-10] VITALS (17 sets, daily range): BP systolic 112–168; BP diastolic 56–99; PULSE 74–102; RESP 12–21; TEMP 36.5–37; O2SAT 94–98; BMI 37.3
[2021-09-10 05:36] LABS: MANUAL DIFF FLAG NO
[2021-09-10 05:39] LABS: Basophils Percent Auto 0.6 % (0-2); Eosinophils Absolute Auto 0.2 X10*3/uL (0.0-0.4); Eosinophils Percent Auto 3.5 % (0-4); Hematocrit 36.4 % (42.0-52.0); Hemoglobin 12.3 g/dl (14.0-18.0); Imm Gran Abs Auto 0.02 X10*3/uL (0.00-0.03); Imm Gran Pct Auto 0.3 % (0.0-0.4); Lymphocytes Percent Auto 28.8 % (20-40); Mean Corpuscular HGB Conc 33.8 g/dl (31.0-36.0); Mean Corpuscular Hemoglobin 31.5 pg (27.0-33.0); Mean Corpuscular Volume 93.3 fL (80.0-98.0); Mean Platelet Volume 9.8 fL (9.4-12.4); Monocytes Absolute Auto 0.3 X10*3/uL (0.1-1.2); Neutrophils Absolute Auto 4.2 x10*3/uL (2.0-8.3); Neutrophils Percent Auto 61.8 % (45-73); Platelet Count 206 X10*3/uL (160-400); Red Cell Distribution Width 13.5 % (11.0-16.0); White Blood Count 6.8 X10*3/uL (4.8-10.8)
[2021-09-10 06:04] LABS: Anion Gap 10 (12-20); Blood Urea Nitrogen 17 mg/dL (9-16); Calcium 8.4 mg/dL (8.4-10.2); Carbon Dioxide 24 mmol/L (22-29); Chloride 111 mmol/L (96-108); Creatinine Clr Calc Pharmacy 75.1; Estimated Glomerular Filt Rate 53; Glucose Random 130 mg/dL (60-115); Sodium 140 mmol/L (135-145); Triglycerides 194 mg/dL
[2021-09-10 06:14] LABS: Cholesterol 81 mg/dL; HDL Cholesterol 19 mg/dL; LDL Cholesterol Calculated 24 mg/dl
[2021-09-10 07:36] LABS: Glucose, Whole Blood 123 mg/dL (60-115)
--- NOTE | 2021-09-10 09:41 | P.PNCC_ITS ---
Subjective Subjective Date of Service: 09/10/21 Interval History: 60-year-old male type 2 diabetic on metformin also on anti retroviral for a HIV diagnosis in the last year but feeling perfectly fine who was well up until sudden onset of nausea vomiting diaphoresis and severe dizziness with some clinical improvement following tPA after noting on MRI that he had multiple and bilateral cerebellar strokes and I reviewed the MRI in CT appearance and there was no sense that this was something atypical like lymphoma out or in infection etc. that they look really like infarct so at this point usual treatment 24 hours following tPA administration will receive aspirin and remain on atorvas tatin at etc. but he is doing very well currently without symptom Critical Care Time (minutes): 45 Physical Exam Vital Signs: Vital Signs: Last Vital Signs Temp 97.7 F 09/10/21 08:00 Pulse 74 09/10/21 09:00 Resp 16 09/10/21 09:00 BP 149/89 H 09/10/21 09:00 Pulse Ox 96 09/10/21 09:00 O2 Del Method 09/10/21 09:00 BMI result Body Mass Index 37.3 Vital signs excellent nonfocal neurologically including cerebellar assessment Cardiovascular by bedside echo within normal limits but awaiting formal echo with bubble study to rule out PFO Chest clear without adventitious sounds Abdomen benign no organomegaly Skin intact Objective Data Labs CBC & Chem 7: 09/10/21 05:07 09/10/21 05:07 Labs: Laboratory Results - last 24 hr 09/09/21 09/09/21 09/09/21 11:00 11:10 11:10 WBC 11.8 H RBC 4.34 L Hgb 13.7 L Hct 39.7 L MCV 91.5 MCH 31.6 MCHC 34.5 RDW 13.4 Plt Count 243 MPV 9.8 Immature Gran % (Auto) 0.3 Neut % (Auto) 41.7 L Lymph % (Auto) 46.7 H [place] % (Auto) 5.7 Eos % (Auto) 5.0 H Baso % (Auto) 0.6 Lymph # (Auto) 5.5 H [place] # (Auto) 0.7 Eos # (Auto) 0.6 H Baso # (Auto) 0.1 Abs Immat Gran (auto) 0.04 H Absolute Neuts (auto) 4.9 Absolute Nucleated RBC 0.000 Nucleated RBC % (auto) 0.0 Smear Tech's Comments VERIFIED PT 10.8 INR 1.0 Sodium Potassium Chloride Carbon Dioxide Anion Gap BUN Creatinine Estim Creat Clear Calc Estimated GFR POC Glucose 188 H Random Glucose Calcium Total Bilirubin AST ALT Alkaline Phosphatase Troponin I High Sens Total Protein Albumin Triglycerides Cholesterol LDL Cholesterol, Calc HDL Cholesterol COVID-19 ([facility]) COVID-19 [facility] 09/09/21 09/09/21 09/09/21 11:10 13:26 15:58 WBC RBC Hgb Hct MCV MCH MCHC RDW Plt Count MPV Immature Gran % (Auto) Neut % (Auto) Lymph % (Auto) [place] % (Auto) Eos % (Auto) Baso % (Auto) Lymph # (Auto) [place] # (Auto) Eos # (Auto) Baso # (Auto) Abs Immat Gran (auto) Absolute Neuts (auto) Absolute Nucleated RBC Nucleated RBC % (auto) Smear Tech's Comments PT INR Sodium 139 Potassium 5.1 Chloride 110 H Carbon Dioxide 21 L Anion Gap 13 BUN 23 H Creatinine 1.71 H Estim Creat Clear Calc 59.8 Estimated GFR 41 POC Glucose Random Glucose 166 H Calcium 8.8 Total Bilirubin 0.5 AST 17 ALT 21 Alkaline Phosphatase 103 Troponin I High Sens < 3.5 Total Protein 7.2 Albumin 4.3 Triglycerides Cholesterol LDL Cholesterol, Calc HDL Cholesterol COVID-19 ([facility]) Negative COVID-[employer] See Note 09/09/21 09/09/21 09/09/21 16:56 19:33 22:04 WBC RBC Hgb Hct MCV MCH MCHC RDW Plt Count MPV Immature Gran % (Auto) Neut % (Auto) Lymph % (Auto) [place] % (Auto) Eos % (Auto) Baso % (Auto) Lymph # (Auto) [place] # (Auto) Eos # (Auto) Baso # (Auto) Abs Immat Gran (auto) Absolute Neuts (auto) Absolute Nucleated RBC Nucleated RBC % (auto) Smear Tech's Comments PT INR Sodium Potassium Chloride Carbon Dioxide Anion Gap BUN Creatinine Estim Creat Clear Calc Estimated GFR POC Glucose 109 116 H Random Glucose Calcium Total Bilirubin AST ALT Alkaline Phosphatase Troponin I High Sens 4.9 Total Protein Albumin Triglycerides Cholesterol LDL Cholesterol, Calc HDL Cholesterol COVID-19 ([facility]) COVID-19 [facility] 09/10/21 09/10/21 09/10/21 05:07 05:07 07:32 WBC 6.8 RBC 3.90 L Hgb 12.3 L Hct 36.4 L MCV 93.3 MCH 31.5 MCHC 33.8 RDW 13.5 Plt Count 206 MPV 9.8 Immature Gran % (Auto) 0.3 Neut % (Auto) 61.8 Lymph % (Auto) 28.8 [place] % (Auto) 5.0 Eos % (Auto) 3.5 Baso % (Auto) 0.6 Lymph # (Auto) 2.0 [place] # (Auto) 0.3 Eos # (Auto) 0.2 Baso # (Auto) 0.0 Abs Immat Gran (auto) 0.02 Absolute Neuts (auto) 4.2 Absolute Nucleated RBC 0.000 Nucleated RBC % (auto) 0.0 Smear Tech's Comments PT INR Sodium 140 Potassium 5.0 Chloride 111 H Carbon Dioxide 24 Anion Gap 10 L BUN 17 H Creatinine 1.38 Estim Creat Clear Calc 75.1 Estimated GFR 53 POC Glucose 123 H Random Glucose 130 H Calcium 8.4 Total Bilirubin AST ALT Alkaline Phosphatase Troponin I High Sens Total Protein Albumin Triglycerides 194 Cholesterol 81 LDL Cholesterol, Calc 24 HDL Cholesterol 19 COVID-19 ([facility]) COVID-19 Clin Com Progress Note: A&P Assessment and plan (1) Cerebral infarction: Status: Acute (2) Cerebellar stroke: Status: Acute (3) 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 the note was an atypical diagnosis so no need for CSF sampling Quality Stroke Does the patient have a stroke diagnosis?: Yes Reason for No Anti-thrombotic by Day Two: Drug interaction VTE Prior VTE?: No VTE Risk Level:: Medical - low VTE Device Contraindication: N/A - Device Ordered VTE Drug Contraindication: Treatment Not Indicated
--- NOTE | 2021-09-10 10:08 | P.CNNE_ITS ---
History of Present Illness Data of Consult Service Date: 09/10/21 Primary Care Provider: Nonstaff Physician HPI Reason for consult: Stroke 60 years old man with underlying history of hypertension who was seen in emergency room yesterday with acute symptoms of posterior circulation stroke, with stat MRI revealing bilateral cerebellar infarcts, treated with intravenous tPA. We learned later that he also suffered from HIV disease and was taking anti-retroviral drugs, which he did not volunteer to share yesterday. He said that his HIV was controlled and numbers were good. Last night he had another bout of dizziness and had a CT scan of brain done to rule out any complication of tPA, which was not found. This morning he was feeling fine with no symptoms. [facility] Past Medical History Medical History (Updated 09/10/21 @ 09:45 by Barbi George MD) Diabetes mellitus, type 2 Gout HIV (human immunodeficiency virus infection) HIV (human immunodeficiency virus infection) Hypertension Kidney stones Social History Social History Household Members: None Housing: House Do you presently have visiting nurse or other home services: No Patient Tobacco Use Status: Never used Tobacco Use of substances other than those prescribed or required for medical reasons: No Have you been hit, kicked, punched, or otherwise hurt by someone within the past year? If so, by whom?: No Do you feel safe in your current relationship?: No [facility] Practices: church Advance Directives: No Advance Directives Information Provided: Yes Do you have thoughts of harming others: None Do you have a plan to hurt others: No Plan Recently lost weight without trying: No Eating poorly because of decreased appetite: No Nutrition Risks: No Nutritional Risk Poor oral hygiene: No Meds Allergies Allergy/AdvReac Type Severity Reaction Status Date / Time No Known Allergies Allergy Verified 09/09/21 10:46 Active Medications: Current Medications Albuterol Sulfate (Albuterol Sulfate 90 Mcg 8 Gm Inhaler) 2 puff INHALE Q4H PRN PRN Reason: Wheezing Allopurinol (Allopurinol 300 Mg Tablet) 600 mg PO BEDTIME [facility] Atorvastatin Calcium (Atorvastatin Calcium 40 Mg Tablet) 40 mg PO BEDTIME [facility] Bictegravir/Emtricitabine/Tenofovir (Bictegrav/Emtricit/Tenofov Ala Tablet) 1 tab PO BEDTIME [facility] Dextrose/Sodium Chloride (D5ns) 1,000 mls @ 80 mls/hr IVCONT .[id number] [facility] Meclizine HCl (Meclizine Hcl 25 Mg Tablet) 25 mg PO Q6H PRN PRN Reason: dizzy Last Admin: 09/09/21 20:22 Dose: 25 mg Metformin HCl (Metformin Hcl 1,000 Mg Tablet) 2,000 mg PO BEDTIME [facility] Ondansetron HCl (Ondansetron Hcl 4 Mg/2 Ml Vial) 4 mg IVPUSH Q6H PRN PRN Reason: Nausea Sodium Chloride (0.9 % Sodium Chloride Flush 3 Ml Syringe) [facility] Last Admin: 09/09/21 23:23 Dose: 3 ml Sodium Chloride (0.9 % Sodium Chloride Flush 3 Ml Syringe) 3 [facility] Sodium Chloride (0.9 % Sodium Chloride Flush 3 Ml Syringe) 3 ml IVFLUSH QSALFT [facility] Home Medications Medication Instructions Recorded Confirmed Last Taken Type albuterol sulfate 90 mcg/actuation 2 inh inhalation Q4H PRN Wheezing 09/09/21 09/09/21 Unknown History aerosol inhaler allopurinol 300 mg tablet 2 tab PO BEDTIME 09/09/21 09/09/21 09/08/21 History atorvastatin 40 mg tablet 1 tab PO BEDTIME 09/09/21 09/09/21 09/08/21 History bictegravir 50 mg-emtricitabine 1 tab PO BEDTIME 09/09/21 09/09/21 09/08/21 History 200 mg-tenofovir alafenam 25 mg tablet (Biktarvy) indomethacin 50 mg capsule 3 - 4 cap PO DAILY PRN GOUT ATTACK 09/09/21 09/09/21 Unknown History metformin 1,000 mg tablet 2,000 mg PO BEDTIME 09/09/21 09/09/21 09/08/21 History sildenafil 50 mg tablet 1 tab PO DAILY PRN SEXUAL 09/09/21 09/09/21 Unknown History INTERCOURSE Physical Exam Vital Signs: Vital Signs: Last Vital Signs Temp 97.7 F 09/10/21 08:00 Pulse 74 09/10/21 09:00 Resp 16 09/10/21 09:00 BP 149/89 H 09/10/21 09:00 Pulse Ox 96 09/10/21 09:00 O2 Del Method 09/10/21 09:00 BMI result Body Mass Index 37.3 Neuro: Other: He is alert and awake with normal spontaneity of speech fluency comprehension and affect. Face is symmetrical. Visual renee are full. Kzvjsy-bx-fesw testing is normal. Speech is normal. Results Labs CBC & Chem 7: 09/10/21 05:07 09/10/21 05:07 Labs: Short CBC 09/09/21 09/10/21 Range/Units 11:10 05:07 WBC 11.8 H 6.8 (4.8-10.8) X10*3/uL Hgb 13.7 L 12.3 L (14.0-18.0) g/dl Hct 39.7 L 36.4 L (42.0-52.0) % Plt Count 243 206 (160-400) X10*3/uL BMP 09/09/21 09/10/21 13:26 05:07 Sodium 139 140 Potassium 5.1 5.0 Chloride 110 H 111 H Carbon Dioxide 21 L 24 BUN 23 H 17 H Creatinine 1.71 H 1.38 Calcium 8.8 8.4 Liver Function 09/09/21 Range/Units 13:26 Total Bilirubin 0.5 (0.0-1.0) mg/dL AST 17 (5-37) U/L ALT 21 (0-40) U/L Alkaline Phosphatase 103 (39-117) U/L Albumin 4.3 (3.5-5.0) g/dL Repeat CT scan of brain did not reveal any new abnormality. Assessment and Plan (1) Cerebellar stroke: Status: Acute 60 years old man who apparently suffered from HIV disease taking anti- retroviral drugs and hypertension who presented yesterday with acute vertigo double vision blurred vision nausea and vomiting. His evaluation revealed acute bilateral cerebellar infarcts. He was treated with intravenous tPA. His symptoms were resolved. His imaging revealed left vertebral disease but that would likely not explain the lesion seen on both sides of cerebellum. I recommend appropriate HIV investigations as ordered and also workup for any primary cancer. Procedures Date of Service Date of Service: 09/10/21
[2021-09-10 10:58] LABS: Prostate Specific Antigen Scr 1.15 ng/mL (<0.05-4.0)
[2021-09-10 12:16] LABS: Glucose, Whole Blood 108 mg/dL (60-115)
--- NOTE | 2021-09-10 12:23 | MHC.SL.SWA ---
Speech Pathologist Impression: WFL Risk of Aspiration Due to: Neurological Condition (Stroke) Dysphasia Diet Status: No Change Liquid Consistency and Strategies for Safe Swallow: Liquid Intake Recommendation: Thin Solid Food Consistency: Dietary Recommendations: Regular Additional Modifications to Solid Foods: Unremarkable exam. Recommend continue with unmodified diet REGULAR solids and THIN liquids, pills WHOLE in LIQUID. Further ST intervention no longer warranted as swallow is deemed to be WFL. Sent [place] Message to MD, RN, RD notifying of recommendation. No changes made to diet order. Please re-refer with any further concern. Oral Medication Intake: Whole with Liquid Please contact the pharmacy regarding appropriate crushable or liquid drug formulations that are available whenever modified delivery is recommended. Compensatory Strategies and Precautions to be Taken for Safe Swallow: Sitting Upright (90 deg) Small Bites and Sips Rate of Ingestion Change Supervision While Eating and Drinking for Safe Swallow: None Needed Recommendation for Speech: NA:Typical Evaluation Windmill Mechanic Clinican/Clinical Fellow: No Supervisory Statement: I have reviewed and agree with the student/clinical fellow's documentation: N/A Speech Language Pathologist: Doris Nuñez M.A., CCC-[employer]
[2021-09-10] MEDS: 0.9 % Sodium Chloride Flush 3 ML SYRINGE IVFLUSH (12:40)
--- NOTE | 2021-09-10 13:29 | MHC.CM.PN ---
Addendum entered by Karen Wheeler 09/10/21 15:05: Per PT & OT Recs for Acute Rehab, spoke with patient and son. Referrals out, 1st choice [facility]. Original Note: Meet with patient to complete CM assessment: Independent with care @ home Asked for information re: HCP- Provided to pt PCP- Thuan Sams- task sent to Registration Family to transport @ d/c Son @ bedside CM will follow for any changes in D/C planning
--- NOTE | 2021-09-10 14:16 | PM.EVENT ---
Event Note Date of Service: 09/10/21 Event Note: A 60-year-old male on anti retroviral and perfectly stable with a background HIV also a type 2 diabetic on metformin it 2 g otherwise p.r.n. albuterol inhaler and indomethacin p.r.n. for gouty pain admitted with an acute onset of nausea vomiting and diaphoresis and dizziness which seems to than significantly improved since we found that he had the multiple bilateral cerebellar infarcts on a on MRI treated with tPA DISCUSSED transfer with Dr. George Cerebellar stroke small acute infarcts within cerebellar hemisphere bilaterally s/p TPA in the ICU Stable for tx to medical floor asa, statin Neuro following ? malignancy diagnostic CT's ordered ECHO pending no embolic source, has remained in NSR HIV Stable compliant with medications CD4 pending ID consult Diabetes ss ada diet DVT Prophylaxis with Attending Dr. Duron Full code Family is not aware of HIV status, patient would like to keep it that way Continued hospitalization for monitoring post TPA, stroke
[2021-09-10] MEDS: Aspirin 81 MG TAB.CHEW PO (14:40)
--- NOTE | 2021-09-10 14:44 | P.CNID_ITS ---
History of Present Illness Data of Consult Service Date: 09/10/21 Requesting physician: Barbi George Primary Care Provider: Nonstaff Physician HPI Reason for consult: HIV ,CVA He presents with this am dizziness and nausea and vomiting. He came to ER. He goes to [facility] for HIV care and not sure of CD4 count but has viral load undetectable. He did see Dr Danyelle Payton who retired and now sees a nurse practitioner He takes Biktarvy,has no OIs and was diagnosed 1 1/2 years ago he says. He has four children and and says no one knows of HIV status in family. He said he led an alternative lifestyle for years and didnt take Prep preventive. He denies STIs He says he has diabetes and increased cholesterol Review of Systems Review of Systems: Yes all other systems are reviewed and are negative PMFSH Past Medical History Medical History Diabetes mellitus, type 2 Gout HIV (human immunodeficiency virus infection) HIV (human immunodeficiency virus infection) Hypertension Kidney stones Social History Social History Household Members: None Housing: House Do you presently have visiting nurse or other home services: No Patient Tobacco Use Status: Never used Tobacco Use of substances other than those prescribed or required for medical reasons: No Have you been hit, kicked, punched, or otherwise hurt by someone within the past year? If so, by whom?: No Do you feel safe in your current relationship?: No [facility] Practices: zoroastrian Advance Directives: No Advance Directives Information Provided: Yes Do you have thoughts of harming others: None Do you have a plan to hurt others: No Plan Recently lost weight without trying: No Eating poorly because of decreased appetite: No Nutrition Risks: No Nutritional Risk Poor oral hygiene: No service: No Current occupational status: employed Meds Allergies Allergy/AdvReac Type Severity Reaction Status Date / Time No Known Allergies Allergy Verified 09/09/21 10:46 Active Medications: Current Medications Albuterol Sulfate (Albuterol Sulfate 90 Mcg 8 Gm Inhaler) 2 puff INHALE Q4H PRN PRN Reason: Wheezing Allopurinol (Allopurinol 300 Mg Tablet) 600 mg PO BEDTIME [facility] Aspirin (Aspirin 81 Mg Tab.Chew) 81 mg PO DAILY [facility] Last Admin: 09/10/21 14:40 Dose: 81 mg Atorvastatin Calcium (Atorvastatin Calcium 40 Mg Tablet) 40 mg PO BEDTIME [facility] Bictegravir/Emtricitabine/Tenofovir (Bictegrav/Emtricit/Tenofov Ala Tablet) 1 tab PO BEDTIME [facility] Dextrose/Sodium Chloride (D5ns) 1,000 mls @ 80 mls/hr IVCONT .[id number] [facility] Last Admin: 09/10/21 10:25 Dose: Not Given Meclizine HCl (Meclizine Hcl 25 Mg Tablet) 25 mg PO Q6H PRN PRN Reason: dizzy Last Admin: 09/09/21 20:22 Dose: 25 mg Metformin HCl (Metformin Hcl 1,000 Mg Tablet) 2,000 mg PO BEDTIME [facility] Ondansetron HCl (Ondansetron Hcl 4 Mg/2 Ml Vial) 4 mg IVPUSH Q6H PRN PRN Reason: Nausea Sodium Chloride (0.9 % Sodium Chloride Flush 3 Ml Syringe) 3 [facility] Last Admin: 09/10/21 12:40 Dose: 3 ml Sodium Chloride (0.9 % Sodium Chloride Flush 3 Ml Syringe) 3 ml IVFLUSH QSPAFT [facility] Sodium Chloride (0.9 % Sodium Chloride Flush 3 Ml Syringe) 3 ml IVFLUSH QSPAFT [facility] Home Medications Medication Instructions Recorded Confirmed Last Taken Type albuterol sulfate 90 mcg/actuation 2 inh inhalation Q4H PRN Wheezing 09/09/21 09/09/21 Unknown History aerosol inhaler allopurinol 300 mg tablet 2 tab PO BEDTIME 09/09/21 09/09/21 09/08/21 History atorvastatin 40 mg tablet 1 tab PO BEDTIME 09/09/21 09/09/21 09/08/21 History bictegravir 50 mg-emtricitabine 1 tab PO BEDTIME 09/09/21 09/09/21 09/08/21 History 200 mg-tenofovir alafenam 25 mg tablet (Biktarvy) indomethacin 50 mg capsule 3 - 4 cap PO DAILY PRN GOUT ATTACK 09/09/21 09/09/21 Unknown History metformin 1,000 mg tablet 2,000 mg PO BEDTIME 09/09/21 09/09/21 09/08/21 History sildenafil 50 mg tablet 1 tab PO DAILY PRN SEXUAL 09/09/21 09/09/21 Unknown History INTERCOURSE Physical Exam Vital Signs: Vital Signs: Last Vital Signs Temp 97.8 F 09/10/21 12:00 Pulse 94 09/10/21 14:00 Resp 21 H 09/10/21 14:00 BP 127/70 09/10/21 14:00 Pulse Ox 95 09/10/21 14:00 O2 Del Method 09/10/21 14:00 BMI result Body Mass Index 37.3 Const: General: cooperative and no acute distress Orientatio n/consciousness: oriented to person and oriented to place Limitations: no limitations HEENT: Head: Yes normal to inspection, Yes normocephalic and Yes atraumatic Ears: external ears normal General nose exam: Normal external nose present Face and sinus: Yes normal facial exam Mouth: Normal oral and palatal mucosa present Throat: Yes posterior oropharynx normal Eyes: General: appearance normal, both eyes and all related structures Pupils: Equal, round and reactive pupils present Neck: Neck: Yes normal visual inspection, Yes no lymphadenopathy, Yes trachea midline and Yes supple Chest: Chest palpation & inspection: normal inspection of the chest and normal palpation of entire chest wall Resp: Effort & Inspection: normal respiratory effort and able to speak in complete sentences Auscultation: clear to auscultation bilaterally Cardio: Rate: regular rate Rhythm: regular rhythm Heart sounds: S1 normal heart sound present, S2 normal heart sound present and no murmurs GI: Inspection: Yes normal to inspection Palpation (GI): Soft to palpation, nontender and no guarding Auscultation: normal bowel sounds : General: Yes no CVA tenderness Back/Spine/Pelvis: Back: no CVA tenderness Skin: General skin exam: no rashes or lesions noted Neuro: General: oriented to person and oriented to place Cranial nerves: Yes CN's II-XII intact bilaterally and Yes Equal, round and reactive pupils present Cognition (Neuro): normal cognition Motor exam (neuro): 5/5 motor strength present throughout Coordination: [id number]-lb-hlld test normal, oqwv-pt-oqat test normal and Normal rapid alternating movements of the distal upper extremity present (Neuro) Extrem: General: Yes normal to inspection Psych: Appearance: grossly normal Speech and movement: Normal speech and movement present Affect: normal affect Attitude: cooperative Thought process: Normal thought process present Thought content: Normal thought content present Vital Signs and Narrative: Vital Signs: Last Vital Signs Temp 97.8 F 09/10/21 12:00 Pulse 94 09/10/21 14:00 Resp 21 H 09/10/21 14:00 BP 127/70 09/10/21 14:00 Pulse Ox 95 09/10/21 14:00 O2 Del Method 09/10/21 14:00 BMI result Body Mass Index 37.3 Const: General: cooperative and no acute distress Orientation/consciousness: oriented to person and oriented to place Limitations: no limitations HEENT: Head: Yes normal to inspection, Yes normocephalic and Yes atraumatic Ears: external ears normal General nose exam: Normal external nose present Face and sinus: Yes normal facial exam Mouth: Normal oral and palatal mucosa present Throat: Yes posterior oropharynx normal Eyes: General: appearance normal, both eyes and all related structures Pupils: Equal, round and reactive pupils present Neck: Yes normal visual inspection, Yes no lymphadenopathy, Yes trachea midline and Yes supple Chest: Chest palpation & inspection: normal inspection of the chest and normal palpation of entire chest wall Resp: Effort & Inspection: normal respiratory effort and able to speak in complete sentences Auscultation: clear to auscultation bilaterally Cardio: Rate: regular rate Rhythm: regular rhythm Heart sounds: S1 normal heart sound present, S2 normal heart sound present and no murmurs GI: Inspection: Yes normal to inspection Palpation (GI): Soft to palpation, nontender and no guarding Auscultation: normal bowel sounds : General: Yes no CVA tenderness Back/Spine/Pelvis: Back: no CVA tenderness Skin: General skin exam: no rashes or lesions noted Neuro: Other: weakness ,no facial droop,dizziness General: oriented to person and oriented to place Cranial nerves: Yes CN's II-XII intact bilaterally and Yes Equal, round and reactive pupils present Cognition (Neuro): normal cognition Motor exam (neuro): 5/5 motor strength present throughout Coordination: lfdisn-vp-iazs test normal, lpjx-ao-dbwc test normal and Normal rapid alternating movements of the distal upper extremity present (Neuro) Extrem: General: Yes normal to inspection Psych: Appearance: grossly normal Speech and movement: Normal speech and movement present Affect: normal affect Attitude: cooperative Thought process: Normal thought process present Thought content: Normal thought content present Results Labs CBC & Chem 7: 09/10/21 05:07 09/10/21 05:07 Labs: Short CBC 09/10/21 Range/Units 05:07 WBC 6.8 (4.8-10.8) X10*3/uL Hgb 12.3 L (14.0-18.0) g/dl Hct 36.4 L (42.0-52.0) % Plt Count 206 (160-400) X10*3/uL BMP 09/10/21 05:07 Sodium 140 Potassium 5.0 Chloride 111 H Carbon Dioxide 24 BUN 17 H Creatinine 1.38 Calcium 8.4 Assessment and Plan (1) Cerebral infarction: Status: Acute (2) Cerebellar stroke: Status: Acute (3) HIV (human immunodeficiency virus infection): He reportedly has controlled HIV I doubt CVA is related to any OI as controlled HIV and unremarkable MRI for that HIV has prothrombotic and proinflammatory effects even when controlled. Plan Continue Biktarvy Can check CD4 count and viral load. Follow with Neurology here.
--- NOTE | 2021-09-10 14:50 | PC.NURSE ---
1445-pt ambulated 100 ft with 1 standby assist. pt tolerated well 1450-urine specimen collected
--- NOTE | 2021-09-10 15:22 | PC.NURSE ---
1458-report called to [facility] 1500-pt transferred via wheelchair to room 467. Son accompanied pt. Pt belongings with pt upon transfer.
[2021-09-10 15:38] LABS: Fentanyl, urine Not Detected (Not Detect)
[2021-09-10 15:41] LABS: Amphetamine Screen Urine Not Detected (Not Detect); Barbiturates, Urine Not Detected (Not Detect); Cannabinoid Screen Urine Not Detected (Not Detect); Cocaine Screen Urine Not Detected (Not Detect); Opiate Screen Urine Not Detected (Not Detect); Phencyclidine Screen Urine Not Detected (Not Detect)
[2021-09-10 15:41] LABS: Glucose, Whole Blood 191 mg/dL (60-115)
[2021-09-10] MEDS: Dextrose 5 % and 0.9 % NaCl 1,000 ML 80 ML IVCONT (16:16)
[2021-09-10] MEDS: Meclizine HCl 25 MG TABLET PO (16:16)
[2021-09-10] MEDS: Scopolamine 1.5 MG PATCH.TD.3 EAR-BEHIND (16:53)
--- NOTE | 2021-09-10 17:14 | PC.NURSE ---
report taken from FUN HOUSE ATTENDANT. pt assessed upon arrival. pt having acute onset dizziness with nausea. prn meds administered as ordered and md informed. Scop patch applied behind ear. PT stated he would like to have CT done at a later time due to dizziness, radio engineer informed. Ativan being held until pt goes for CT. safety and fall precautions in place. call moore within reach. fluids maintained.
[2021-09-10 20:05] LABS: Glucose, Whole Blood 126 mg/dL (60-115)
[2021-09-11] VITALS: BP 138/76; PULSE 77; RESP 15; TEMP 37.1; O2SAT 95
[2021-09-11] MEDS: Bictegrav/Emtricit/Tenofov Ala TABLET 1 TAB PO ×2 (00:03→20:50)
[2021-09-11] MEDS: Atorvastatin Calcium 40 MG TABLET PO ×2 (00:03→20:50)
[2021-09-11] MEDS: allopurinoL 300 MG TABLET 600 MG PO ×2 (00:03→20:50)
[2021-09-11] MEDS: metFORMIN HCl 1,000 MG TABLET 2000 MG PO ×2 (00:03→20:50)
[2021-09-11] MEDS: Acetaminophen 325 MG TABLET PO (00:21)
[2021-09-11] MEDS: Acetaminophen 325 MG TABLET 650 MG PO (00:50)
[2021-09-11 04:00] VITALS: BP 113/64; PULSE 75; RESP 15; TEMP 36.9; O2SAT 92
--- NOTE | 2021-09-11 07:00 | CA_ITS ---
Transthoracic Echocardiogram Patient (Last, First, Middle): Gerald Singleton, Gender: Male Date of : 1960 Age: 60 Procedure Date: 09/11/2021 Procedure Type: Transthoracic Echocardiogram Location: [facility] [place] Height: 177.8 cm Weight: 117.94 kg BSA: 2.33 m2 Heart Rate: bpm BP: 113 / 64 mmHg Editor Newspaper: [employer]IN[employer] Referring MD: Barbi George MD Symptoms: Source of embolism Study Quality: Fair/contrast ECG Rhythm: Sinus Conclusions: - The left ventricular systolic function is mildly decreased. The calculated ejection fraction is 45% by biplane method. - No obvious valvular pathology seen on this study. - There is no evidence of interatrial shunt by agitated saline. Findings Procedure Information Contrast agent, definity, is being given per protocol without apparent complications. Left Ventricle Normal left ventricular cavity size. There is mildly increased left ventricular wall thickness. The left ventricular systolic function is mildly decreased. The calculated ejection fraction is 45% by biplane method. There is mild global hypokinesis. Diastolic function is normal for age. Right Ventricle Normal right ventricular cavity size and systolic function. Atria Both atria are normal in size. There is no evidence of interatrial shunt by agitated saline. Bubble study negative during rest and valsalva. Aortic Valve There is a normal trileaflet aortic valve. There is no aortic valve stenosis. There is no aortic valve regurgitation. Mitral Valve The mitral valve appears normal. There is no mitral valve regurgitation. There is no mitral valve stenosis. Pulmonic Valve The pulmonic valve is likely normal. Tricuspid Valve There is no tricuspid valve regurgitation. The pulmonary artery systolic pressure is normal. Great Vessels The asc aorta is normal in size. Venous The inferior vena cava is normal in size and collapses greater than 50% with inspiration. Pericardium/Pleural There is no evidence of pericardial effusion. Prior Study Comparison No prior study available for comparison. Recommendations, Care & Conclusions No obvious valvular pathology seen on this study. Measurements 2D Linear Measurements IVSd: 1.10 0.6-0.9/0.6-1.0 cm LVIDd: 5.15 3.9-5.3/4.2-5.9 cm LVIDd Index: 2.21 2.4-3.2/2.2-3.1 cm/m2 LVIDs: 2.72 2.0-3.6 cm LVPWd: 1.09 0.7-1.1 cm LA Diam: 3.80 2.7-3.8/3.0-4.0 cm LAIDs Index: 1.63 1.5-2.3 cm/m2 LV Mass: 269.21 67-162/88-224 g LV Mass Index: 115.54 43-95/49-115 g/m2 LVOT Diam: 2.20 3.0+(-)1.3 cm 2D Systolic Function EF 4C: 47.10 >55% EF 2C: 45.20 >55% EF BiP: 44.90 >55% Mitral Valve MV Pk E: 0.62 MV PK A: 0.83 MV Decel Time: 259.00 E/A: 0.80 E'Lateral: 7.83 E'Medial: 6.85 E/E' Med: 9.10 E/E' Lat: 8.00 PHT: 76.00 MVA PHT: 2.89 Decel [place]: 2.41 Aortic Valve AoV Pk Rohan: 1.01 AoV Mn Rohan: 0.78 AoV VTI: 0.23 AoV Pk Grad: 4.00 Aov Mn Grad: 3.00 NADER Cont.VTI: 2.18 LVOT LVOT Pk Rohan: 0.69 LVOT Mn Rohan: 0.40 LVOT VTI: 0.13 LVOT Pk Grad: 2.00 LVOT Mn Grad: 1.00 LVOT Diam: 2.20 LVOT Area: 3.80 Diastolic Function MV Pk E: 0.62 MV Pk A: 0.83 E/A: 0.80 E'Medial: 6.85 E/E' Med: 9.10 E' Laterial: 7.83 E/E' Lat: 8.00 Right Ventricle TAPSE (mm): 20.30 TVS' Rohan: 11.20 Tricuspid Valve TR Pk Rohan: 1.59 TR Pk Grad: 10.00 RA Press: 8.00 RVSP: 18.00 Great Vessels Aorta Sinus of Valsalva: 3.47 2.0-3.5 cm Ao Asc: 3.10 2.1-3.4 cm Updated in Other Vendor System with Status of Final Sina Royal MD electronically signed on 09/11/2021 12:50:11 PM with status of Final
[2021-09-11 07:05] LABS: Benzodiazepines Screen Urine Not Detected (Not Detect)
[2021-09-11 07:44] LABS: Glucose, Whole Blood 120 mg/dL (60-115)
[2021-09-11 08:00] VITALS: BP 145/90; PULSE 76; RESP 18; TEMP 36.5; O2SAT 94
[2021-09-11] MEDS: Dextrose 5 % and 0.9 % NaCl 1,000 ML 80 ML IVCONT (08:16)
[2021-09-11] MEDS: Aspirin 81 MG TAB.CHEW PO (08:16)
--- NOTE | 2021-09-11 09:57 | P.PNIM_ITS ---
Subjective Subjective Date of Service: 09/11/21 Review of Systems Follow up Stroke No symptoms sitting up in bed Physical Exam Vital Signs: Vital Signs: Last Vital Signs Temp 97.7 F 09/11/21 08:00 Pulse 76 09/11/21 08:00 Resp 18 09/11/21 08:00 BP 145/90 H 09/11/21 08:00 Pulse Ox 94 09/11/21 08:00 O2 Del Method 09/11/21 08:00 BMI result Body Mass Index 37.3 Appearing in no acute distress lung sounds are clear to auscultation heart regular rate rhythm, clear S1, S2 positive bowel sounds, abdomen is soft, nontender neuro patient is alert x3, no focal deficits Objective Data Active Medications Acetaminophen (Acetaminophen 325 Mg Tablet) 325 mg PO Q8H PRN PRN Reason: Pain, Mild (Pain Scale 1-3) Last Admin: 09/11/21 00:21 Dose: 325 mg Documented By: CONSTANZA Albuterol Sulfate (Albuterol Sulfate 90 Mcg 8 Gm Inhaler) 2 puff INHALE Q4H PRN PRN Reason: Wheezing Allopurinol (Allopurinol 300 Mg Tablet) 600 mg PO BEDTIME [facility] Last Admin: 09/11/21 00:03 Dose: 600 mg Documented By: ELVIA Aspirin (Aspirin 81 Mg Tab.Chew) 81 mg PO DAILY [facility] Last Admin: 09/11/21 08:16 Dose: 81 mg Documented By: NELLY Atorvastatin Calcium (Atorvastatin Calcium 40 Mg Tablet) 40 mg PO BEDTIME [facility] Last Admin: 09/11/21 00:03 Dose: 40 mg Documented By: ELVIA Bictegravir/Emtricitabine/Tenofovir (Bictegrav/Emtricit/Tenofov Ala Tablet) 1 tab PO BEDTIME [facility] Last Admin: 09/11/21 00:03 Dose: 1 tab Documented By: ELVIA Dextrose/Sodium Chloride (D5ns) 1,000 mls @ 80 mls/hr IVCONT .[id number] [facility] Last Admin: 09/11/21 08:16 Dose: 80 mls/hr Documented By: NELLY Metformin HCl (Metformin Hcl 1,000 Mg Tablet) 2,000 mg PO BEDTIME [facility] Last Admin: 09/11/21 00:03 Dose: 2,000 mg Documented By: ELVIA Ondansetron HCl (Ondansetron Hcl 4 Mg/2 Ml Vial) 4 mg IVPUSH Q6H PRN PRN Reason: Nausea Sodium Chloride (0.9 % Sodium Chloride Flush 3 Ml Syringe) 3 ml IVFLUSH QSHIFT [facility] Last Admin: 09/11/21 07:31 Dose: Not Given Documented By: NELLY Non-Admin Reason: assessed Sodium Chloride (0.9 % Sodium Chloride Flush 3 Ml Syringe) 3 ml IVFLUSH QSNHFT [facility] Last Admin: 09/11/21 07:32 Dose: Not Given Documented By: NELLY Non-Admin Reason: assessed Sodium Chloride (0.9 % Sodium Chloride Flush 3 Ml Syringe) 3 ml IVFLUSH QSHIFT [facility] Last Admin: 09/11/21 07:32 Dose: Not Given Documented By: NELLY Non-Admin Reason: assessed Labs CBC & Chem 7: 09/10/21 05:07 09/10/21 05:07 Labs: Laboratory Results - last 24 hr 09/10/21 09/10/21 09/10/21 10:12 12:13 14:49 POC Glucose 108 PSA Screen 1.15 Urine Opiates Screen Not Detected Urine Fentanyl Screen Not Detected Ur Barbiturates Screen Not Detected Ur Phencyclidine Scrn Not Detected Ur Amphetamines Screen Not Detected U Benzodiazepines Scrn Not Detected Urine Cocaine Screen Not Detected U Marijuana (THC) Screen Not Detected 09/10/21 09/10/21 09/11/21 15:37 20:01 07:37 POC Glucose 191 H 126 H 120 H PSA Screen Urine Opiates Screen Urine Fentanyl Screen Ur Barbiturates Screen Ur Phencyclidine Scrn Ur Amphetamines Screen U Benzodiazepines Scrn Urine Cocaine Screen U Marijuana (THC) Screen Assessment and Plan (1) Cerebral infarction: Status: Acute Plan A 60-year-old male on anti retroviral and perfectly stable with a background HIV also a type 2 diabetic on metformin it 2 g otherwise p.r.n. albuterol inhaler and indomethacin p.r.n. for gouty pain admitted with an acute onset of nausea vomiting and diaphoresis and dizziness which seems to than significantly improved since we found that he had the multiple bilateral cerebellar infarcts on a on MRI treated with tPA Cerebellar stroke small acute infarcts within cerebellar hemisphere bilaterally s/p TPA in the ICU asa, statin Neuro following ? malignancy diagnostic CT's ordered ECHO pending no embolic source, has remained in NSR Dry scans of chest, abd neg for malignancy HIV Stable compliant with medications CD4 pending ID consult, HIV does nor appear linked to stroke Diabetes ss ada diet DVT Prophylaxis with heparin Attending Dr. Duron Full code Family is not aware of HIV status, patient would like to keep it that way Continued hospitalization for monitoring post TPA, stroke Quality Stroke Does the patient have a stroke diagnosis?: Yes Reason for No Anti-thrombotic by Day Two: Drug interaction VTE Prior VTE?: No VTE Risk Level:: Medical - low VTE Device Contraindication: N/A - Device Ordered VTE Drug Contraindication: Treatment Not Indicated
[2021-09-11 11:39] LABS: Glucose, Whole Blood 130 mg/dL (60-115)
[2021-09-11 11:58] VITALS: BP 150/94; PULSE 68; RESP 19; TEMP 36.7; O2SAT 96
--- NOTE | 2021-09-11 14:52 | MHC.CM.PN ---
Per Rounds discussion, Patient is not yet medically cleared for dc r/t anticipated LP tomorrow.Acute Rehab continues to be the goal for dc and CM will continue to follow.
[2021-09-11 15:23] VITALS: BP 135/82; PULSE 88; RESP 14; TEMP 36.2; O2SAT 95
--- NOTE | 2021-09-11 15:40 | PC.NURSE ---
IVF maintained. POCs obtained. safety and fall precautions maintained. call moore within reach. updated pt this AM. family at bedside.
[2021-09-11 16:02] LABS: Glucose, Whole Blood 149 mg/dL (60-115)
[2021-09-11 19:46] VITALS: BP 129/84; PULSE 84; RESP 14; TEMP 36.4; O2SAT 96
[2021-09-11 20:05] LABS: Glucose, Whole Blood 102 mg/dL (60-115)
--- NOTE | 2021-09-11 23:19 | PM.EVENT ---
Event Note Date of Service: 09/11/21 Event Note: would check serum cryptococcal antigen and start Acyclovir ?HSV ischemic CVA
[2021-09-12] VITALS (10 sets, daily range): BP systolic 131–173; BP diastolic 65–96; PULSE 65–108; RESP 15–20; TEMP 36.2–37.8; O2SAT 94–98; BMI 35.9
[2021-09-12] MEDS: Dextrose 5 % and 0.9 % NaCl 1,000 ML 80 ML IVCONT (06:12)
[2021-09-12] MEDS: Acetaminophen 325 MG TABLET PO ×2 (06:16→13:52)
[2021-09-12 07:11] LABS: Hematocrit 38.7 % (42.0-52.0); Hemoglobin 12.8 g/dl (14.0-18.0); Mean Corpuscular HGB Conc 33.1 g/dl (31.0-36.0); Mean Corpuscular Hemoglobin 30.8 pg (27.0-33.0); Mean Corpuscular Volume 93.3 fL (80.0-98.0); Mean Platelet Volume 9.6 fL (9.4-12.4); Platelet Count 211 X10*3/uL (160-400); Red Blood Count 4.15 X10*6/uL (4.60-5.80); Red Cell Distribution Width 13.4 % (11.0-16.0); White Blood Count 8.4 X10*3/uL (4.8-10.8)
[2021-09-12 07:36] LABS: Anion Gap 12 (12-20); Blood Urea Nitrogen 13 mg/dL (9-16); Calcium 8.7 mg/dL (8.4-10.2); Carbon Dioxide 25 mmol/L (22-29); Chloride 109 mmol/L (96-108); Creatinine Clr Calc Pharmacy 66.4; Estimated Glomerular Filt Rate 47; Glucose Random 107 mg/dL (60-115); Potassium 5.1 mmol/L (3.3-5.1); Sodium 141 mmol/L (135-145)
[2021-09-12 07:37] LABS: Glucose, Whole Blood 116 mg/dL (60-115)
--- NOTE | 2021-09-12 09:38 | P.PNIM_ITS ---
Subjective Subjective Date of Service: 09/12/21 Review of Systems Follow up Stroke No symptoms sitting up in bed Physical Exam Vital Signs: Vital Signs: Last Vital Signs Temp 97.2 F 09/12/21 07:40 Pulse 65 09/12/21 07:40 Resp 18 09/12/21 07:40 BP 131/69 09/12/21 07:40 Pulse Ox 96 09/12/21 07:40 O2 Del Method 09/12/21 07:40 BMI result Body Mass Index 35.9 Appearing in no acute distress lung sounds are clear to auscultation heart regular rate rhythm, clear S1, S2 positive bowel sounds, abdomen is soft, nontender neuro patient is alert x3, no focal deficits Objective Data Active Medications Acetaminophen (Acetaminophen 325 Mg Tablet) 325 mg PO Q8H PRN PRN Reason: Pain, Mild (Pain Scale 1-3) Last Admin: 09/12/21 06:16 Dose: 325 mg Documented By: GLENROY Albuterol Sulfate (Albuterol Sulfate 90 Mcg 8 Gm Inhaler) 2 puff INHALE Q4H PRN PRN Reason: Wheezing Allopurinol (Allopurinol 300 Mg Tablet) 600 mg PO BEDTIME [facility] Last Admin: 09/11/21 20:50 Dose: 600 mg Documented By: OLIMPIA Aspirin (Aspirin 81 Mg Tab.Chew) 81 mg PO DAILY [facility] Last Admin: 09/11/21 08:16 Dose: 81 mg Documented By: NELLY Atorvastatin Calcium (Atorvastatin Calcium 40 Mg Tablet) 40 mg PO BEDTIME [facility] Last Admin: 09/11/21 20:50 Dose: 40 mg Documented By: OLIMPIA Bictegravir/Emtricitabine/Tenofovir (Bictegrav/Emtricit/Tenofov Ala Tablet) 1 tab PO BEDTIME [facility] Last Admin: 09/11/21 20:50 Dose: 1 tab Documented By: OLIMPIA Acyclovir Sodium 900 mg/ (Sodium Chloride) 268 mls @ 268 mls/hr IV Q8H [facility] Metformin HCl (Metformin Hcl 1,000 Mg Tablet) 2,000 mg PO BEDTIME [facility] [place] Last Admin: 09/11/21 20:50 Dose: 2,000 mg Documented By: OLIMPIA Ondansetron HCl (Ondansetron Hcl 4 Mg/2 Ml Vial) 4 mg IVPUSH Q6H PRN PRN Reason: Nausea Sodium Chloride (0.9 % Sodium Chloride Flush 3 Ml Syringe) 3 ml IVFLUSH QSAZFT [facility] [place] Last Admin: 09/12/21 07:44 Dose: Not Given Documented By: HEYDI Non-Admin Reason: IV Running Sodium Chloride (0.9 % Sodium Chloride Flush 3 Ml Syringe) 3 ml IVFLUSH QSAZFT [facility] Last Admin: 09/12/21 07:44 Dose: Not Given Documented By: HEYDI Non-Admin Reason: IV Running Sodium Chloride (0.9 % Sodium Chloride Flush 3 Ml Syringe) 3 ml IVFLUSH QSAZFT [facility] Last Admin: 09/12/21 07:44 Dose: Not Given Documented By: HEYDI Non-Admin Reason: IV Running Labs CBC & Chem 7: 09/12/21 06:34 09/12/21 06:34 Labs: Laboratory Results - last 24 hr 09/11/21 09/11/21 09/11/21 11:32 15:58 20:02 MCV MCH MCHC RDW Plt Count MPV Absolute Nucleated RBC Nucleated RBC % (auto) Anion Gap Estim Creat Clear Calc Estimated GFR POC Glucose 130 H 149 H 102 Random Glucose Calcium 09/12/21 09/12/21 09/12/21 06:34 06:34 07:32 MCV 93.3 MCH 30.8 MCHC 33.1 RDW 13.4 Plt Count 211 MPV 9.6 Absolute Nucleated RBC 0.000 Nucleated RBC % (auto) 0.0 Anion Gap 12 Estim Creat Clear Calc 66.4 Estimated GFR 47 POC Glucose 116 H Random Glucose 107 Calcium 8.7 Assessment and Plan (1) Cerebral infarction: Status: Acute Plan A 60-year-old male on anti retroviral and perfectly stable with a background HIV also a type 2 diabetic on metformin it 2 g otherwise p.r.n. albuterol inhaler and indomethacin p.r.n. for gouty pain admitted with an acute onset of nausea vomiting and diaphoresis and dizziness which seems to than significantly improved since we found that he had the multiple bilateral cerebellar infarcts on a on MRI treated with tPA Cerebellar stroke small acute infarcts within cerebellar hemisphere bilaterally s/p TPA in the ICU asa, statin Neuro following ? malignancy diagnostic CT's ordered ECHO EF 45%, no embolic source, has remained in NSR Dry scans of chest, abd neg for malignancy LP to assess for [employer] vasculitis as cause for stroke ID rec checking serum cryptococcal antigen and start Acyclovir ?HSV ischemic CVA HIV Stable compliant with medications CD4 pending ID consult, HIV does nor appear linked to stroke Diabetes ss ada diet DVT Prophylaxis with heparin Attending Dr. Duron Full code Family is not aware of HIV status, patient would like to keep it that way Continued hospitalization for monitoring post TPA, stroke Quality Stroke Does the patient have a stroke diagnosis?: Yes Reason for No Anti-thrombotic by Day Two: Drug interaction VTE Prior VTE?: No VTE Risk Level:: Medical - low VTE Device Contraindication: N/A - Device Ordered VTE Drug Contraindication: Treatment Not Indicated
[2021-09-12 11:00] LABS: Glucose, Whole Blood 104 mg/dL (60-115)
[2021-09-12 12:26] LABS: Absolute CD3 Count 1358 cells/uL (840-3060); Absolute CD4 Count 752 cells/uL (490-1740); Absolute CD8 Count 647 cells/uL (180-1170); Absolute Lymphocytes 1916 cells/uL (850-3900); CD4 CD8 Ratio 1.16 (0.86-5.00); Percent CD3 Cells 71 % (57-85); Percent CD4 Cells 39 % (30-61); Percent CD8 Cells 34 % (12-42)
--- NOTE | 2021-09-12 13:14 | MHC.CM.PN ---
With Patient's permission, CM spoke with Patient's Son/Jose @ [phone] to update him on dc planning. PT is recommending Acute Rehab and Patient is clinically accepted at his first choice Facility/[facility] pending bed availability @ dc and [facility] auth. CM will continue to follow.
[2021-09-12 13:20] LABS: CSF Appearance Clear, Colorless; CSF Tube # 3
[2021-09-12 13:30] LABS: Glucose CSF 67 mg/dL; Total Protein CSF 41.6 mg/dL (15-45)
[2021-09-12 13:38] LABS: Appearance CSF CLEAR; CSF Tube # 4; Color CSF COLORLESS; Red Blood Cell CSF 0 MM*3; White Blood Cell CSF 4 MM*3
[2021-09-12 13:39] LABS: Lymphocytes CSF 56 %; Neutrophils CSF 44 %
[2021-09-12 17:22] LABS: Glucose, Whole Blood 81 mg/dL (60-115)
[2021-09-12 17:26] LABS: Glucose, Whole Blood 81 mg/dL (60-115)
[2021-09-12] MEDS: Acetaminophen 325 MG TABLET 650 MG PO (18:07)
[2021-09-12] MEDS: metFORMIN HCl 1,000 MG TABLET 2000 MG PO (20:12)
[2021-09-12] MEDS: Bictegrav/Emtricit/Tenofov Ala TABLET 1 TAB PO (20:12)
[2021-09-12] MEDS: allopurinoL 300 MG TABLET 600 MG PO (20:13)
[2021-09-12] MEDS: 0.9 % Sodium Chloride Flush 3 ML SYRINGE IVFLUSH ×3 (20:13)
[2021-09-12] MEDS: Atorvastatin Calcium 40 MG TABLET PO (20:13)
[2021-09-12 20:22] LABS: Glucose, Whole Blood 130 mg/dL (60-115)
[2021-09-13] VITALS (8 sets, daily range): BP systolic 134–165; BP diastolic 76–97; PULSE 74–94; RESP 15–20; TEMP 36.4–36.9; O2SAT 93–97; BMI 35.6
[2021-09-13] MEDS: Acetaminophen 325 MG TABLET 650 MG PO ×2 (02:49→22:16)
[2021-09-13 07:40] LABS: Glucose, Whole Blood 78 mg/dL (60-115)
[2021-09-13 07:45] LABS: Syphilis Screen Nonreactive (Nonreactive)
[2021-09-13] MEDS: Aspirin 81 MG TAB.CHEW PO (08:22)
[2021-09-13] MEDS: ondansetron HCL 4 MG/2 ML VIAL IVPUSH (08:22)
[2021-09-13] MEDS: 0.9 % Sodium Chloride Flush 3 ML SYRINGE IVFLUSH ×3 (08:23→22:16)
--- NOTE | 2021-09-13 10:53 | PM.DS ---
DS: Providers Provider Date of Service: 09/16/21 Date of admission: 09/09/21 15:24 Primary care physician: Thuan Sams MD Consults: 09/09/21 15:24 Consult to Neurology Routine Consulting Provider: Anjel Florez Reason for consultation: Acute bilateral cerebellar strokes Has provider been notified: Yes 09/10/21 07:49 Consult to Infectious Diseases Routine Consulting Provider: Diana Ye Reason for consultation: HIV on antiretroviral Has provider been notified: Yes DS: Diagnosis Discharge Diagnosis (1) Cerebral infarction: Status: Acute DS: Summary Hospital Course Hospital Course: Chief Complaint: Acute onset of nausea vomiting diet diaphoresis and dizziness A 60-year-old male on anti retroviral and perfectly stable with a background HIV also a type 2 diabetic on metformin it 2 g otherwise p.r.n. albuterol inhaler and indomethacin p.r.n. for gouty pain admitted with an acute onset of nausea vomiting and diaphoresis and dizziness which seems to than significantly improved since we found that he had the multiple bilateral cerebellar infarcts on a on MRI treated with tPA and monitored in ICU a day Hospital course: He had acute bilateral cerebellar CVA with associated dizziness, etiology of stroke is unclear, work up CT heada, head and neck CT, MRI of breain, lumbar puncture to rule out possible HIV related, cryptococcus antigen not detected. He has been treatred with Acyclovir x 5 days per ID recommendation for possible HSV related stroke..Will treated with PO valtrex as well for total of 14 days. Neurology(Dr. Florez) saw him with the following remarks: His evaluation revealed acute bilateral cerebellar infarcts.? He was treated with intravenous tPA.? His symptoms were resolved.? His imaging revealed left vertebral disease but that would likely not explain the lesion seen on both sides of cerebellum. I recommend appropriate HIV investigations as ordered and also workup for any primary cancer. He had CT of chest, abdomen and pelvis to rule out malingnancy and will have Holter on outpatient basis. \ Time Spent with Patient Time attestation: Total time spent providing and/or coordinating discharge services: Discharge coordination time: Greater than 30 minutes Quality: Safe Use of Opioids Does Pt have an Active Cancer Diagnosis on the Problem List?: No Quality: Stroke Does the patient have a stroke diagnosis?: No Physical Exam Vital Signs: Vital Signs: Last Vital Signs Temp 97.7 F 09/13/21 08:00 Pulse 74 09/13/21 09:42 Resp 19 09/13/21 08:00 BP 165/97 H 09/13/21 09:42 Pulse Ox 97 09/13/21 09:42 O2 Del Method 09/13/21 08:00 BMI result Body Mass Index 35.6 DS: Data Data Completed and Pending Pending studies at discharge: Pending at discharge 09/11/21 10:04 Cytology [PTH] Routine Labs on day of discharge: Laboratory Results - last 24 hr 09/10/21 09/11/21 09/12/21 06:58 23:36 10:56 POC Glucose 104 CSF Tube Number CSF Volume CSF Appearance CSF Color CSF WBC CSF RBC CSF Neutrophils CSF Lymphocytes CSF Appearance (b) CSF Glucose CSF Total Protein Total Lymphocytes 1916 % CD3 Cells 71 Absolute CD3 Count 1358 % CD4 Cells 39 Absolute CD4 Count 752 CD4/CD8 Ratio 1.16 % CD8 Cells 34 Absolute CD8 Count 647 T.pallidum Ab (EIA) Nonreactive 09/12/21 09/12/21 09/12/21 16:21 17:14 20:18 POC Glucose 81 81 130 H CSF Tube Number CSF Volume CSF Appearance CSF Color CSF WBC CSF RBC CSF Neutrophils CSF Lymphocytes CSF Appearance (b) CSF Glucose CSF Total Protein Total Lymphocytes % CD3 Cells Absolute CD3 Count % CD4 Cells Absolute CD4 Count CD4/CD8 Ratio % CD8 Cells Absolute CD8 Count T.pallidum Ab (EIA) 09/12/21 09/12/21 09/13/21 Unknown Unknown 07:28 POC Glucose 78 CSF Tube Number 3 4 CSF Volume 3.0 CSF Appearance CLEAR CSF Color COLORLESS CSF WBC 4 CSF RBC 0 CSF Neutrophils 44 CSF Lymphocytes 56 CSF Appearance (b) Clear, Colorless CSF Glucose 67 CSF Total Protein 41.6 Total Lymphocytes % CD3 Cells Absolute CD3 Count % CD4 Cells Absolute CD4 Count CD4/CD8 Ratio % CD8 Cells Absolute CD8 Count T.pallidum Ab (EIA) Preliminary micro results at discharge 09/12/21 Unknown CSF Culture - Preliminary Cerebrospinal Fluid No growth after 1 day Discharge Plan Discharge Anticipated Discharge Date/Time: 09/16/21 08:50 Patient Disposition: Home, Self-Care Discharge Diagnosis: Acute cerebella stroke Referrals: Thuan Sams MD [Primary Care Provider] - 1 Week Discharge Medications: New aspirin 81 mg capsule 81 mg PO DAILY Qty: 30 0RF valacyclovir [Valtrex] 1 gram tablet 1,000 mg PO TID Qty: 27 0RF Continued atorvastatin 40 mg tablet 1 tab PO BEDTIME sildenafil 50 mg tablet 1 tab PO DAILY PRN (Reason: SEXUAL INTERCOURSE) metformin 1,000 mg tablet 2,000 mg PO BEDTIME indomethacin 50 mg capsule 3 - 4 cap PO DAILY PRN (Reason: GOUT ATTACK) allopurinol 300 mg tablet 2 tab PO BEDTIME albuterol sulfate 90 mcg/actuation HFA aerosol inhaler 2 inh inhalation Q4H PRN (Reason: Wheezing) Biktarvy 50-200-25 mg tablet 1 tab PO BEDTIME Discharge Orders: Discharge Order (Routine); Ordered 09/16/21 Ordered By: Denny Barry Diet: Advance to usual diet Activity on Discharge: As tolerated Stand Alone Forms: Patient Portal Discharge page Care Plan Goals: Full recovery from stroke Health Concerns: Full recovery from stroke Plan of Treatment: Acute inpatient rehab Ask your Doctor to arrange for holter monitor through cardiology department at [place] Assessment: as above
--- NOTE | 2021-09-13 10:57 | HO.PM.IMPN ---
Subjective Subjective Date of Service: 09/13/21 Review of Systems F/u on cerebella stroke interval history: c/o dizziness Physical Exam Vital Signs: Vital Signs: Last Vital Signs Temp 97.7 F 09/13/21 08:00 Pulse 74 09/13/21 09:42 Resp 19 09/13/21 08:00 BP 165/97 H 09/13/21 09:42 Pulse Ox 97 09/13/21 09:42 O2 Del Method 09/13/21 08:00 BMI result Body Mass Index 35.6 Const: Other: General: AO X 3, no acute distress Resp: CTA bilateral CVS: S1,S2,RRR GI: +BS, NT, no distention Skin: No rash Neuro: motor grossly intact Psych: appropriate affect Objective Data Active Medications Acetaminophen (Acetaminophen 325 Mg Tablet) 650 mg PO Q8H PRN PRN Reason: Pain, Mild (Pain Scale 1-3) Last Admin: 09/13/21 02:49 Dose: 650 mg Documented By: WADE Albuterol Sulfate (Albuterol Sulfate 90 Mcg 8 Gm Inhaler) 2 puff INHALE Q4H PRN PRN Reason: Wheezing Allopurinol (Allopurinol 300 Mg Tablet) 600 mg PO BEDTIME [facility] Last Admin: 09/12/21 20:13 Dose: 600 mg Documented By: WADE Aspirin (Aspirin 81 Mg Tab.Chew) 81 mg PO DAILY [facility] Last Admin: 09/13/21 08:22 Dose: 81 mg Documented By: ELIAZAR Atorvastatin Calcium (Atorvastatin Calcium 40 Mg Tablet) 40 mg PO BEDTIME [facility] Last Admin: 09/12/21 20:13 Dose: 40 mg Documented By: WADE Bictegravir/Emtricitabine/Tenofovir (Bictegrav/Emtricit/Tenofov Ala Tablet) 1 tab PO BEDTIME [facility] Last Admin: 09/12/21 20:12 Dose: 1 tab Documented By: WADE Acyclovir Sodium 900 mg/ (Sodium Chloride) 268 mls @ 268 mls/hr IV Q8H [facility] Last Infusion: 09/13/21 03:18 Dose: 0 mls/hr Documented By: WADE Metformin HCl (Metformin Hcl 1,000 Mg Tablet) 2,000 mg PO BEDTIME [facility] Last Admin: 09/12/21 20:12 Dose: 2,000 mg Documented By: WADE Ondansetron HCl (Ondansetron Hcl 4 Mg/2 Ml Vial) 4 mg IVPUSH Q6H PRN PRN Reason: Nausea Last Admin: 09/13/21 08:22 Dose: 4 mg Documented By: ELIAZAR Sodium Chloride (0.9 % Sodium Chloride Flush 3 Ml Syringe) 3 ml IVFLUSH [facility] Last Admin: 09/13/21 08:23 Dose: 3 ml Documented By: ELIAZAR Sodium Chloride (0.9 % Sodium Chloride Flush 3 Ml Syringe) 3 ml IVFLUSH [facility] Last Admin: 09/13/21 08:31 Dose: Not Given Documented By: ELIAZAR Non-Admin Reason: Duplicate Order Sodium Chloride (0.9 % Sodium Chloride Flush 3 Ml Syringe) 3 ml IVFLUSH [facility] Last Admin: 09/13/21 08:31 Dose: Not Given Documented By: ELIAZAR Non-Admin Reason: Duplicate Order Labs CBC & Chem 7: 09/12/21 06:34 09/12/21 06:34 Labs: Laboratory Results - last 24 hr 09/10/21 09/11/21 09/12/21 06:58 23:36 10:56 POC Glucose 104 CSF Tube Number CSF Volume CSF Appearance CSF Color CSF WBC CSF RBC CSF Neutrophils CSF Lymphocytes CSF Appearance (b) CSF Glucose CSF Total Protein Total Lymphocytes 1916 % CD3 Cells 71 Absolute CD3 Count 1358 % CD4 Cells 39 Absolute CD4 Count 752 CD4/CD8 Ratio 1.16 % CD8 Cells 34 Absolute CD8 Count 647 T.pallidum Ab (EIA) Nonreactive 09/12/21 09/12/21 09/12/21 16:21 17:14 20:18 POC Glucose 81 81 130 H CSF Tube Number CSF Volume CSF Appearance CSF Color CSF WBC CSF RBC CSF Neutrophils CSF Lymphocytes CSF Appearance (b) CSF Glucose CSF Total Protein Total Lymphocytes % CD3 Cells Absolute CD3 Count % CD4 Cells Absolute CD4 Count CD4/CD8 Ratio % CD8 Cells Absolute CD8 Count T.pallidum Ab (EIA) 09/12/21 09/12/21 09/13/21 Unknown Unknown 07:28 POC Glucose 78 CSF Tube Number 3 4 CSF Volume 3.0 CSF Appearance CLEAR CSF Color COLORLESS CSF WBC 4 CSF RBC 0 CSF Neutrophils 44 CSF Lymphocytes 56 CSF Appearance (b) Clear, Colorless CSF Glucose 67 CSF Total Protein 41.6 Total Lymphocytes % CD3 Cells Absolute CD3 Count % CD4 Cells Absolute CD4 Count CD4/CD8 Ratio % CD8 Cells Absolute CD8 Count T.pallidum Ab (EIA) Microbiology Microbiology Results: Microbiology 09/12/21 Unknown Gram Stain - Final Cerebrospinal Fluid CSF Examination - Final Fluid Description - Final CSF Culture - Preliminary No growth after 1 day Assessment and Plan (1) Cerebral infarction: Status: Acute Plan A 60-year-old male on anti retroviral and perfectly stable with a background HIV also a type 2 diabetic on metformin it 2 g otherwise p.r.n. albuterol inhaler and indomethacin p.r.n. for gouty pain admitted with an acute onset of nausea vomiting and diaphoresis and dizziness which seems to than significantly improved since we found that he had the multiple bilateral cerebellar infarcts on a on MRI treated with tPA Cerebellar stroke small acute infarcts within cerebellar hemisphere bilaterally s/p TPA in the ICU asa, statin Neuro following ECHO EF 45%, no embolic source, has remained in NSR CT chest,Abdomen, no evidence of malignancy LP finding unremarkable for vasculitis of infection ID rec checking serum cryptococcal antigen and start Acyclovir ?HSV ischemic CVA HIV Stable compliant with medications CD4 > 700 ID consult, HIV does nor appear linked to stroke Diabetes ss ada diet DVT Prophylaxis with heparin Attending Dr. Duron Full code Family is not aware of HIV status, patient would like to keep it that way Continued hospitalization for monitoring post TPA, stroke, awaiting acute inpatient w/u Quality Stroke Does the patient have a stroke diagnosis?: No Reason for No Anti-thrombotic by Day Two: Drug interaction VTE Prior VTE?: No VTE Risk Level:: Medical - low VTE Device Contraindication: N/A - Device Ordered VTE Drug Contraindication: Treatment Not Indicated
[2021-09-13 12:33] LABS: Glucose, Whole Blood 84 mg/dL (60-115)
--- NOTE | 2021-09-13 14:10 | PM.IDPN ---
Subjective Subjective Date of Service: 09/13/21 Critical Care Time (minutes): 15 Comment: He feels dizzy Otherwise he feels about the same He has no visual disturbance Objective Data Labs CBC & Chem 7: 09/12/21 06:34 09/12/21 06:34 Labs: Laboratory Results - last 24 hr 09/10/21 09/11/21 09/12/21 06:58 23:36 16:21 POC Glucose 81 Lymphocyte Subset Cmmnt TNP T.pallidum Ab (EIA) Nonreactive 09/12/21 09/12/21 09/13/21 17:14 20:18 07:28 POC Glucose 81 130 H 78 Lymphocyte Subset Cmmnt T.pallidum Ab (EIA) 09/13/21 12:27 POC Glucose 84 Lymphocyte Subset Cmmnt T.pallidum Ab (EIA) Microbiology Microbiology Results: Microbiology 09/12/21 Unknown Cerebrospinal Fluid Gram Stain - Final 09/12/21 Unknown Cerebrospinal Fluid CSF Examination - Final 09/12/21 Unknown Cerebrospinal Fluid Fluid Description - Final 09/12/21 Unknown Cerebrospinal Fluid CSF Culture - Preliminary No growth after 1 day Physical Exam Vital Signs: Vital Signs: Last Vital Signs Temp 97.6 F 09/13/21 12:00 Pulse 78 09/13/21 12:00 Resp 20 09/13/21 12:00 BP 139/92 H 09/13/21 12:00 Pulse Ox 94 09/13/21 12:00 O2 Del Method 09/13/21 12:00 BMI result Body Mass Index 35.6 Const: General: cooperative Orientation/consciousness: patient oriented x3 HEENT: Head: Yes normal to inspection Mouth: Normal oral and palatal mucosa present Resp: Effort & Inspection: normal respiratory effort Cardio: Rate: regular rate Rhythm: regular rhythm GI: Palpation (GI): Soft to palpation and nontender Neuro: General: patient oriented x3 and CN's II-XI intact bilaterally Assessment and Plan Assessment and plan (1) Cerebral infarction: Status: Acute (2) Cerebellar stroke: Problem details: possible herpetic involvement Status: Acute (3) HIV (human immunodeficiency virus infection): Status: Acute Plan Continue Acyclovi IV probable 5 days then po Valtrex 1 g tid for total 14 days Await crypotococcal antigen in blood. Time Spent With Patient Time: Total time spent is greater than 50% in coordination of care (as documented) at patient's floor/unit and/or counseling patient:
[2021-09-13 15:52] LABS: HIV RNA PCR Qn Copies NOT DETECTED copies/mL (NOT DETECTED); HIV RNA PCR Qn Log Copies NOT DETECTED (NOT DETECTED)
[2021-09-13 16:36] LABS: Glucose, Whole Blood 139 mg/dL (60-115)
[2021-09-13 21:20] LABS: Glucose, Whole Blood 121 mg/dL (60-115)
[2021-09-13] MEDS: metFORMIN HCl 1,000 MG TABLET 2000 MG PO (22:15)
[2021-09-13] MEDS: allopurinoL 300 MG TABLET 600 MG PO (22:16)
[2021-09-13] MEDS: Atorvastatin Calcium 40 MG TABLET PO (22:16)
[2021-09-13] MEDS: Bictegrav/Emtricit/Tenofov Ala TABLET 1 TAB PO (22:16)
[2021-09-14 03:39] VITALS: BP 130/82; PULSE 87; RESP 19; O2SAT 95
[2021-09-14 06:00] VITALS: BMI 35.2
[2021-09-14 07:40] LABS: Glucose, Whole Blood 78 mg/dL (60-115)
[2021-09-14 08:00] VITALS: BP 160/87; PULSE 68; RESP 20; TEMP 36.7; O2SAT 96
--- NOTE | 2021-09-14 08:53 | HO.PM.IMPN ---
Subjective Subjective Date of Service: 09/14/21 Interval History: F/u on cerebella stroke interval history: No dizziness today Review of Systems no dizziness, no new stroke symptoms Physical Exam Vital Signs: Vital Signs: Last Vital Signs Temp 98.0 F 09/14/21 08:00 Pulse 68 09/14/21 08:00 Resp 20 09/14/21 08:00 BP 160/87 H 09/14/21 08:00 Pulse Ox 96 09/14/21 08:00 O2 Del Method 09/14/21 08:00 BMI result Body Mass Index 35.2 Const: Other: General: AO X 3, no acute distress Resp: CTA bilateral CVS: S1,S2,RRR GI: +BS, NT, no distention Skin: No rash Neuro: motor grossly intact, gait is normal Psych: appropriate affect Objective Data Active Medications Acetaminophen (Acetaminophen 325 Mg Tablet) 650 mg PO Q8H PRN PRN Reason: Pain, Mild (Pain Scale 1-3) Last Admin: 09/13/21 22:16 Dose: 650 mg Documented By: ELVIA Albuterol Sulfate (Albuterol Sulfate 90 Mcg 8 Gm Inhaler) 2 puff INHALE Q4H PRN PRN Reason: Wheezing Allopurinol (Allopurinol 300 Mg Tablet) 600 mg PO BEDTIME [facility] Last Admin: 09/13/21 22:16 Dose: 600 mg Documented By: ELVIA Aspirin (Aspirin 81 Mg Tab.Chew) 81 mg PO DAILY [facility] Last Admin: 09/13/21 08:22 Dose: 81 mg Documented By: ELIAZAR Atorvastatin Calcium (Atorvastatin Calcium 40 Mg Tablet) 40 mg PO BEDTIME [facility] Last Admin: 09/13/21 22:16 Dose: 40 mg Documented By: ELVIA Bictegravir/Emtricitabine/Tenofovir (Bictegrav/Emtricit/Tenofov Ala Tablet) 1 tab PO BEDTIME [facility] Last Admin: 09/13/21 22:16 Dose: 1 tab Documented By: ELVIA Acyclovir Sodium 900 mg/ (Sodium Chloride) 268 mls @ 268 mls/hr IV Q8H [facility] Last Infusion: 09/14/21 04:17 Dose: 0 mls/hr Documented By: KATHRYN Metformin HCl (Metformin Hcl 1,000 Mg Tablet) 2,000 mg PO BEDTIME [facility] Last Admin: 09/13/21 22:15 Dose: 2,000 mg Documented By: ELVIA Ondansetron HCl (Ondansetron Hcl 4 Mg/2 Ml Vial) 4 mg IVPUSH Q6H PRN PRN Reason: Nausea Last Admin: 09/13/21 08:22 Dose: 4 mg Documented By: ELIAZAR Sodium Chloride (0.9 % Sodium Chloride Flush 3 Ml Syringe) 3 ml IVFLUSH [facility] Last Admin: 09/13/21 22:16 Dose: 3 ml Documented By: ELVIA Sodium Chloride (0.9 % Sodium Chloride Flush 3 Ml Syringe) 3 ml IVFLUSH [facility] Last Admin: 09/14/21 00:14 Dose: Not Given Documented By: ELVIA Non-Admin Reason: Duplicate Order Sodium Chloride (0.9 % Sodium Chloride Flush 3 Ml Syringe) 3 ml IVFLUSH [facility] Last Admin: 09/14/21 00:14 Dose: Not Given Documented By: ELVIA Non-Admin Reason: Duplicate Order Labs CBC & Chem 7: 09/12/21 06:34 09/12/21 06:34 Labs: Laboratory Results - last 24 hr 09/10/21 09/10/21 09/11/21 06:58 06:58 23:36 POC Glucose Lymphocyte Subset Cmmnt TNP HIV-1 RNA copies/mL NOT DETECTED HIV-1 RNA logcopies/mL NOT DETECTED Cryptococcal Ag SEE NOTE 09/13/21 09/13/21 09/13/21 12:27 15:34 21:15 POC Glucose 84 139 H 121 H Lymphocyte Subset Cmmnt HIV-1 RNA copies/mL HIV-1 RNA logcopies/mL Cryptococcal Ag 09/14/21 07:25 POC Glucose 78 Lymphocyte Subset Cmmnt HIV-1 RNA copies/mL HIV-1 RNA logcopies/mL Cryptococcal Ag Microbiology Microbiology Results: Microbiology 09/12/21 Unknown Gram Stain - Final Cerebrospinal Fluid CSF Examination - Final Fluid Description - Final CSF Culture - Preliminary No growth after 2 days Assessment and Plan (1) Cerebral infarction: Status: Acute Plan A 60-year-old male on anti retroviral and perfectly stable with a background HIV also a type 2 diabetic on metformin it 2 g otherwise p.r.n. albuterol inhaler and indomethacin p.r.n. for gouty pain admitted with an acute onset of nausea vomiting and diaphoresis and dizziness which seems to than significantly improved since we found that he had the multiple bilateral cerebellar infarcts on a on MRI treated with tPA Cerebellar stroke small acute infarcts within cerebellar hemisphere bilaterally s/p TPA in the ICU asa, statin Neuro following ECHO EF 45%, no embolic source, has remained in NSR CT chest,Abdomen, no evidence of malignancy LP finding unremarkable for vasculitis of infection ID rec checking serum cryptococcal antigen and Acyclovir IV x 5 days then PO, D3/5 ?HSV ischemic CVA HIV Stable compliant with medications CD4 > 700 ID consult, HIV does nor appear linked to stroke Diabetes ss ada diet DVT Prophylaxis with heparin Attending Dr. Duron Full code Family is not aware of HIV status, patient would like to keep it that way Continued hospitalization for monitoring post TPA, stroke, awaiting acute inpatient w/u Quality Stroke Does the patient have a stroke diagnosis?: No Reason for No Anti-thrombotic by Day Two: Drug interaction VTE Prior VTE?: No VTE Risk Level:: Medical - low VTE Device Contraindication: N/A - Device Ordered VTE Drug Contraindication: Treatment Not Indicated
[2021-09-14 10:13] VITALS: BP 160/87; PULSE 68; O2SAT 96
[2021-09-14 11:12] LABS: Glucose, Whole Blood 115 mg/dL (60-115)
[2021-09-14] MEDS: Acetaminophen 325 MG TABLET 650 MG PO ×2 (11:22→20:03)
[2021-09-14 11:28] VITALS: BP 137/86; PULSE 84; RESP 18; TEMP 36.9; O2SAT 97
[2021-09-14] MEDS: Aspirin 81 MG TAB.CHEW PO (11:28)
[2021-09-14] MEDS: 0.9 % Sodium Chloride Flush 3 ML SYRINGE IVFLUSH ×5 (11:29→20:06)
--- NOTE | 2021-09-14 12:54 | MHC.CM.PN ---
Adarshoned to meet w/patient and son Jose. Inquiries RE D/C; they are eager for patient to D/C. Updated them on status of [facility] referral (no bed offer as of yet and no auth either), as well as MD's plan; if PT re-evals today and clears for a home D/C, then will ione back around w/MD RE home VS home w/services. Messaged MD RE PT note is done, inquired D/C thoughts. Pending response. CM to follow.
[2021-09-14 16:00] VITALS: BP 152/82; PULSE 87; RESP 16; TEMP 36.7; O2SAT 97
[2021-09-14 16:31] LABS: Glucose, Whole Blood 154 mg/dL (60-115)
[2021-09-14 20:00] VITALS: BP 159/60; PULSE 82; RESP 18; TEMP 36.8; O2SAT 95
[2021-09-14] MEDS: Atorvastatin Calcium 40 MG TABLET PO (20:03)
[2021-09-14] MEDS: metFORMIN HCl 1,000 MG TABLET 2000 MG PO (20:03)
[2021-09-14] MEDS: allopurinoL 300 MG TABLET 600 MG PO (20:03)
[2021-09-14] MEDS: Bictegrav/Emtricit/Tenofov Ala TABLET 1 TAB PO (20:03)
[2021-09-14 20:28] LABS: Glucose, Whole Blood 92 mg/dL (60-115)
[2021-09-15] VITALS (8 sets, daily range): BP systolic 124–151; BP diastolic 67–87; PULSE 39–94; RESP 18–20; TEMP 36.3–36.9; O2SAT 94–96; BMI 35.2
[2021-09-15] MEDS: Acetaminophen 325 MG TABLET 650 MG PO ×2 (03:38→19:53)
[2021-09-15 07:50] LABS: Glucose, Whole Blood 92 mg/dL (60-115)
--- NOTE | 2021-09-15 10:48 | P.PNIM_ITS ---
Subjective Subjective Date of Service: 09/15/21 Interval History: F/u on cerebella stroke interval history: No dizziness today Review of Systems no dizziness, no new stroke symptoms Physical Exam Vital Signs: Vital Signs: Last Vital Signs Temp 97.6 F 09/15/21 08:00 Pulse 39 L 09/15/21 08:18 Resp 20 09/15/21 08:00 BP 124/87 09/15/21 08:00 Pulse Ox 95 09/15/21 08:00 O2 Del Method 09/15/21 08:00 BMI result Body Mass Index 35.2 Const: Other: General: AO X 3, no acute distress Resp: CTA bilateral CVS: S1,S2,RRR GI: +BS, NT, no distention Skin: No rash Neuro: motor grossly intact, gait is normal Psych: appropriate affect Objective Data Active Medications Acetaminophen (Acetaminophen 325 Mg Tablet) 650 mg PO Q8H PRN PRN Reason: Pain, Mild (Pain Scale 1-3) Last Admin: 09/15/21 03:38 Dose: 650 mg Documented By: YENNIFER Albuterol Sulfate (Albuterol Sulfate 90 Mcg 8 Gm Inhaler) 2 puff INHALE Q4H PRN PRN Reason: Wheezing Allopurinol (Allopurinol 300 Mg Tablet) 600 mg PO BEDTIME [facility] Last Admin: 09/14/21 20:03 Dose: 600 mg Documented By: YENNIFER Aspirin (Aspirin 81 Mg Tab.Chew) 81 mg PO DAILY [facility] Last Admin: 09/14/21 11:28 Dose: 81 mg Documented By: JEROME Atorvastatin Calcium (Atorvastatin Calcium 40 Mg Tablet) 40 mg PO BEDTIME [facility] Last Admin: 09/14/21 20:03 Dose: 40 mg Documented By: YENNIFER Bictegravir/Emtricitabine/Tenofovir (Bictegrav/Emtricit/Tenofov Ala Tablet) 1 tab PO BEDTIME [facility] Last Admin: 09/14/21 20:03 Dose: 1 tab Documented By: YENNIFER Acyclovir Sodium 900 mg/ (Sodium Chloride) 268 mls @ 268 mls/hr IV Q8H [facility] Last Infusion: 09/15/21 05:02 Dose: 0 mls/hr Documented By: YENNIFER Metformin HCl (Metformin Hcl 1,000 Mg Tablet) 2,000 mg PO BEDTIME [facility] Last Admin: 09/14/21 20:03 Dose: 2,000 mg Documented By: YENNIFER Ondansetron HCl (Ondansetron Hcl 4 Mg/2 Ml Vial) 4 mg IVPUSH Q6H PRN PRN Reason: Nausea Last Admin: 09/13/21 08:22 Dose: 4 mg Documented By: ELIAZAR Sodium Chloride (0.9 % Sodium Chloride Flush 3 Ml Syringe) 3 ml IVFLUSH QSMOFT [facility] Last Admin: 09/14/21 20:03 Dose: 3 ml Documented By: YENNIFER Sodium Chloride (0.9 % Sodium Chloride Flush 3 Ml Syringe) 3 ml IVFLUSH QSMOFT [facility] Last Admin: 09/15/21 10:30 Dose: Not Given Documented By: BEBETO Non-Admin Reason: Duplicate Order Sodium Chloride (0.9 % Sodium Chloride Flush 3 Ml Syringe) 3 ml IVFLUSH QSMOFT [facility] Last Admin: 09/15/21 10:30 Dose: Not Given Documented By: BEBETO Non-Admin Reason: Duplicate Order Labs CBC & Chem 7: 09/12/21 06:34 09/12/21 06:34 Labs: Laboratory Results - last 24 hr 09/14/21 09/14/21 09/14/21 11:05 16:21 20:17 POC Glucose 115 154 H 92 09/15/21 07:28 POC Glucose 92 Microbiology Microbiology Results: Microbiology 09/12/21 Unknown Gram Stain - Final Cerebrospinal Fluid CSF Examination - Final Fluid Description - Final CSF Culture - Final No growth after 3 days. Assessment and Plan (1) Cerebral infarction: Status: Acute Plan A 60-year-old male on anti retroviral and perfectly stable with a background HIV also a type 2 diabetic on metformin it 2 g otherwise p.r.n. albuterol inhaler and indomethacin p.r.n. for gouty pain admitted with an acute onset of nausea vomiting and diaphoresis and dizziness which seems to than significantly improved since we found that he had the multiple bilateral cerebellar infarcts on a on MRI treated with tPA Cerebellar stroke small acute infarcts within cerebellar hemisphere bilaterally s/p TPA in the ICU asa, statin Neuro following ECHO EF 45%, no embolic source, has remained in NSR CT chest,Abdomen, no evidence of malignancy LP finding unremarkable for vasculitis of infection ID rec checking serum cryptococcal antigen (negative) and Acyclovir IV x 5 days then PO, D4/5 ?HSV ischemic CVA HIV Stable compliant with medications CD4 > 700 ID consult, HIV does nor appear linked to stroke Diabetes ss ada diet DVT Prophylaxis with heparin Full code Family is not aware of HIV status, patient would like to keep it that way Continued hospitalization for monitoring post TPA, stroke, awaiting acute inpatient w/u, day 4/5 of iv acyclovir Quality Stroke Does the patient have a stroke diagnosis?: No Reason for No Anti-thrombotic by Day Two: Drug interaction VTE Prior VTE?: No VTE Risk Level:: Medical - low VTE Device Contraindication: N/A - Device Ordered VTE Drug Contraindication: Treatment Not Indicated
[2021-09-15 11:52] LABS: Glucose, Whole Blood 146 mg/dL (60-115)
[2021-09-15] MEDS: Aspirin 81 MG TAB.CHEW PO (12:04)
[2021-09-15] MEDS: 0.9 % Sodium Chloride Flush 3 ML SYRINGE IVFLUSH ×4 (13:08→19:57)
[2021-09-15 16:10] LABS: Glucose, Whole Blood 75 mg/dL (60-115)
[2021-09-15] MEDS: metFORMIN HCl 1,000 MG TABLET 2000 MG PO (19:53)
[2021-09-15] MEDS: Atorvastatin Calcium 40 MG TABLET PO (19:53)
[2021-09-15] MEDS: Bictegrav/Emtricit/Tenofov Ala TABLET 1 TAB PO (19:53)
[2021-09-15] MEDS: allopurinoL 300 MG TABLET 600 MG PO (19:53)
[2021-09-15 20:03] LABS: Glucose, Whole Blood 148 mg/dL (60-115)
[2021-09-16 03:57] VITALS: BP 151/71; PULSE 89; RESP 19; TEMP 36.9; O2SAT 98
[2021-09-16 05:38] VITALS: BMI 35.2
[2021-09-16 06:29] LABS: Hematocrit 39.7 % (42.0-52.0); Hemoglobin 13.6 g/dl (14.0-18.0); Mean Corpuscular HGB Conc 34.3 g/dl (31.0-36.0); Mean Corpuscular Hemoglobin 31.6 pg (27.0-33.0); Mean Corpuscular Volume 92.1 fL (80.0-98.0); Mean Platelet Volume 9.4 fL (9.4-12.4); Platelet Count 223 X10*3/uL (160-400); Red Blood Count 4.31 X10*6/uL (4.60-5.80); Red Cell Distribution Width 13.2 % (11.0-16.0); White Blood Count 9.8 X10*3/uL (4.8-10.8)
[2021-09-16 06:44] LABS: Anion Gap 15 (12-20); Blood Urea Nitrogen 17 mg/dL (9-16); Carbon Dioxide 27 mmol/L (22-29); Chloride 106 mmol/L (96-108); Estimated Glomerular Filt Rate 49; Glucose Fasting 88 mg/dL (60-99); Potassium 4.5 mmol/L (3.3-5.1); Sodium 143 mmol/L (135-145)
[2021-09-16 07:47] LABS: Glucose, Whole Blood 87 mg/dL (60-115)
[2021-09-16 08:00] VITALS: BP 137/83; PULSE 81; RESP 18; TEMP 36.1; O2SAT 95
[2021-09-16] MEDS: 0.9 % Sodium Chloride Flush 3 ML SYRINGE IVFLUSH ×4 (08:44→09:02)
[2021-09-16] MEDS: Aspirin 81 MG TAB.CHEW PO (08:44)
[2021-09-16] MEDS: Acetaminophen 325 MG TABLET 650 MG PO (08:48)
[2021-09-16 09:29] VITALS: BP 137/83; PULSE 81; O2SAT 95
--- NOTE | 2021-09-16 10:23 | MHC.CM.PN ---
PATIENT RE-EVALED BY PT TODAY AND CLEARED TO DC HOME WITH NO SERVICES. FAMILY TO TRANSPORT
== END 2021-09-16 12:36 | disposition home or self-care (01) | DRG 45 ==
LOC: HO.ED 15:23 → HO.EDOVER 15:54 → HO.ICU 15:59 → HO.IMC 09-10 14:32
PROVIDERS: Internal Medicine; Nurse Practitioner Acute Care; Radiology Diagnostic Radiology; Admitting Provider Internal Medicine Cardiovascular Disease; Emergency Provider Emergency Medicine Emergency Medical Services; PCP Family Medicine; Visit Provider Internal Medicine
PROC: 009U3ZZ Drainage of Spinal Canal, Percutaneous Approach (ICD-10-PCS; CPT 62270; principal; 2021-09-12 12:00)
DX: I63.89 Other cerebral infarction (principal); I65.02 Occlusion and stenosis of left vertebral artery; E11.9 Type 2 diabetes mellitus without complications; M10.9 Gout, unspecified; I10 Essential (primary) hypertension; R26.81 Unsteadiness on feet; R29.701 NIHSS score 1; Z21 Asymptomatic human immunodeficiency virus [HIV] infection status; R47.1 Dysarthria and anarthria; E66.9 Obesity, unspecified; Z20.822 Contact with and (suspected) exposure to COVID-19; Z68.35 Body mass index [BMI] 35.0-35.9, adult; Z87.442 Personal history of urinary calculi; Z79.82 Long term (current) use of aspirin; Z79.84 Long term (current) use of oral hypoglycemic drugs; Z79.899 Other long term (current) drug therapy
CPT/HCPCS: 36415; 62328; 70450; 70496; 70498; 70551; 71045; 71250; 74176; 80048; 80053; 80061; 80307; 82945; 82947; 84153; 84157; 84484; 85025; 85027; 85610; 86359; 86360; 86403; 86780; 87015; 87070; 87205; 87536; 87635; 88108; 89051; 92610; 93005; 93306; 96361; 96374; 96375; 97162; 97166; 97530; 99285; J0133; J1200; J2060; J2405; J2997; Q9957; Q9967